=== PATIENT | female | born 1965 | race Caucasian/White ===

== ENCOUNTER → 2020-02-14 | Outpatient (CLI) | payer OTHER ==
--- NOTE | 2020-02-18 14:07 | MM ---
Reason for exam: screening (asymptomatic). Last mammogram was performed 1 year and 2 months ago. History: Patient is postmenopausal. Family history of breast cancer in sister at age 36. Physical Findings: A clinical breast exam by your physician is recommended on an annual basis and results should be correlated with mammographic findings. MG 3D Screening Mammo W/Cad Bilateral CC and MLO view(s) were taken. Prior study comparison: December 06, 2018, mammogram. November 10, 2017, mammogram. There are scattered fibroglandular densities. There are benign appearing round vascular calcifications bilaterally. There is no discrete abnormality. ASSESSMENT: Benign, BI-RAD 2 RECOMMENDATION: Routine screening mammogram of both breasts in 1 year.
== END | disposition home or self-care (01) ==
LOC: RADMAMWWP 10:07
PROVIDERS: ATTEND Obstetrics & Gynecology Obstetrics
DX: Z12.31 Encounter for screening mammogram for malignant neoplasm of breast (principal)
CPT/HCPCS: 77063; 77067

== ENCOUNTER 2021-02-05 10:28 | Emergency (ER) | payer OTHER ==
[2021-02-05 10:33] VITALS: RESP 18
[2021-02-05] MEDS ORDERED: SODIUM CHLORIDE 0.9% 1,000 ML IV STA (10:45)
[2021-02-05 11:18] LABS: Basophils # (A) 0.1 k/uL (0-0.2); Basophils % (A) 1 %; Eosinophils # (A) 0.2 k/uL (0-0.7); Eosinophils % (A) 2 %; HCT 45.4 % (34.0-46.0); HGB 12.8 gm/dL (11.4-16.0); Lymphocytes # (A) 2.2 k/uL (1.0-4.8); Lymphocytes % (A) 25 %; MCH 26.5 pg (25.0-35.0); MCHC 28.3 g/dL (31.0-37.0); MCV 93.5 fL (80.0-100.0); Mean Platelet Volume 7.3; Monocytes # (A) 0.4 k/uL (0-1.0); Monocytes % (A) 4 %; Neutrophils # (A) 5.9 k/uL (1.3-7.7); Neutrophils % (A) 66 %; Platelet Count 278 k/uL (150-450); RBC 4.85 m/uL (3.80-5.40); RDW 13.9 % (11.5-15.5); WBC 8.9 k/uL (3.8-10.6)
[2021-02-05 11:27] LABS: Appearance,Urine Clear (Clear); Bilirubin,Urine Negative (Negative); Blood,Urine Trace (Negative); Color,Urine Yellow; Glucose,Urine (UA) Negative (Negative); Hyaline Casts,Urine 1 /lpf (0-2); Ketones,Urine Negative (Negative); Leukocyte Esterase,Urine Negative (Negative); Mucus,Urine Moderate /hpf; Nitrite,Urine Negative (Negative); PH, Urine 5.5 (5.0-8.0); Protein,Urine Trace (Negative); RBC,Urine 2 /hpf (0-5); Specific Gravity,Urine 1.022 (1.001-1.035); Squamous Epithelial Cell,Urine <1 /hpf (0-4); WBC,Urine 1 /hpf (0-5)
[2021-02-05 11:53] LABS: ALT 26 U/L (4-34); AST 32 U/L (14-36); African American GFR (CKD) >90 (>60 ml/min/1.73 sqM); Albumin 4.5 g/dL (3.5-5.0); Alkaline Phosphatase 118 U/L (38-126); Anion Gap 11 mmol/L; Blood Urea Nitrogen 12 mg/dL (7-17); Calcium 9.6 mg/dL (8.4-10.2); Carbon Dioxide 25 mmol/L (22-30); Chloride 103 mmol/L (98-107); Glucose 102 mg/dL (74-99); Lipase 69 U/L (23-300); Non-African American GFR(CKD) 82 (>60 ml/min/1.73 sqM); Potassium 4.2 mmol/L (3.5-5.1); Sodium 139 mmol/L (137-145); Total Bilirubin 1.1 mg/dL (0.2-1.3); Total Protein 8.1 g/dL (6.3-8.2)
--- NOTE | 2021-02-05 12:33 | CT ---
EXAMINATION TYPE: CT abdomen pelvis w con DATE OF EXAM: 02/05/2021 COMPARISON: None HISTORY: Left lower quadrant pain CT DLP: 1363.5 mGycm Automated exposure control for dose reduction was used. TECHNIQUE: Helical acquisition of images from the lung bases through the pelvis have been completed. CONTRAST: Patient received 100 cc Isovue-300 IV, no oral contrast FINDINGS: LUNG BASES: Minimal dependent atelectatic changes. AORTA: No significant abnormality is appreciated. LIVER/GB: Gallbladder somewhat hydropic. The liver shows low attenuation likely due to hepatic steato sis PANCREAS: No significant abnormality is seen. SPLEEN: No significant abnormality is seen. ADRENALS: No significant abnormality is seen. KIDNEYS: No significant abnormality is seen. REPRODUCTIVE ORGANS: No significant abnormality is seen BOWEL: Diverticular changes are present especially in the sigmoid colon, descending colon, there is bowel wall thickening in the sigmoid colon, some local inflammatory changes are present, some fluid d ensity is present along the sigmoid colon FREE AIR: No Free Air visible. ASCITES: None visible. PELVIC ADENOPATHY: None visualized. RETROPERITONEAL ADENOPATHY: No Retroperitoneal Adenopathy visible. URINARY BLADDER: No significant abnormality is seen. OSSEOUS STRUCTURES: Degenerative disc changes are present in the lumbar spine IMPRESSION: CORRELATE FOR COLITIS, DIVERTICULITIS, FOLLOW-UP IS RECOMMENDED. HYDROPIC GALLBLADDER IS INDETERMINAT E.
[2021-02-05] MEDS ORDERED: cefTRIAXone IN SWFI 1,000 MG/10 ML SYRINGE IVP STA (12:52)
--- NOTE | 2021-02-05 12:53 | ED ---
Abdominal Pain HPI - General Chief Complaint: Abdominal Pain Stated Complaint: Abdominal Pain Time Seen by Provider: 02/05/21 10:29 Source: patient, RN notes reviewed Mode of arrival: ambulatory Limitations: no limitations - History of Present Illness Initial Comments: 55 show female presents emergency Department chief complaint of abdominal pain. Patient states she left lower quadrant abdominal pain last few days. She states it's worse with eating. Patient states she has no diverticuli but no history of diverticulitis. No fevers or chills slight nausea no vomiting no dysuria no hematuria and states about once have been essentially normal. - Related Data Home Medications Medication Instructions Recorded Confirmed Calcium Carbonate [Calcium] 600 mg PO DAILY 02/05/21 02/05/21 Cholecalciferol (Vitamin D3) 75 mcg PO DAILY 02/05/21 02/05/21 [Vitamin D3 (3000 Iu)] Glucos Sul 2Kcl/MSM/Chond/C/Mn 1 cap PO DAILY 02/05/21 02/05/21 [Glucosamine Chondroitin Cap] L.acidoph,Paracasei, B.lactis 1 cap PO DAILY 02/05/21 02/05/21 [Probiotic] Levothyroxine Sodium [Synthroid] 75 mcg PO DAILY 02/05/21 02/05/21 Magnesium 250 mg PO DAILY 02/05/21 02/05/21 Mirabegron [Myrbetriq] 25 mg PO DAILY 02/05/21 02/05/21 Multivitamins, Thera [Multivitamin 1 tab PO DAILY 02/05/21 02/05/21 (formulary)] Turmeric Root Extract [Turmeric] 500 mg PO DAILY 02/05/21 02/05/21 Previous Rx's Medication Instructions Recorded Ciprofloxacin HCl [Cipro] 500 mg PO Q12HR #20 tablet 02/05/21 metroNIDAZOLE [Flagyl] 500 mg PO TID #30 tab 02/05/21 Allergies Allergy/AdvReac Type Severity Reaction Status Date / Time Penicillins Allergy Unknown Verified 02/05/21 12:02 Childhood Review of Systems ROS Statement: Those systems with pertinent positive or pertinent negative responses have been documented in the HPI. ROS Other: All systems not noted in ROS Statement are negative. Past Medical History Past Medical History: Thyroid Disorder History of Any Multi-Drug Resistant Organisms: None Reported Past Surgical History: No Surgical Hx Reported Past Psychological History: No Psychological Hx Reported Smoking Status: Never smoker Past Alcohol Use History: None Reported Past Drug Use History: None Reported General Exam Limitations: no limitations General appearance: alert, in no apparent distress Head exam: Present: atraumatic, normocephalic, normal inspection Eye exam: Present: normal appearance, PERRL, EOMI. Absent: scleral icterus, conjunctival injection, periorbital swelling Respiratory exam: Present: normal lung sounds bilaterally. Absent: respiratory distress, wheezes, rales, rhonchi, stridor Cardiovascular Exam: Present: regular rate, normal rhythm, normal heart sounds. Absent: systolic murmur, diastolic murmur, rubs, gallop, clicks GI/Abdominal exam: Present: soft, tenderness (Mild left lower quadrant), normal bowel sounds. Absent: distended, guarding, rebound, rigid Course Vital Signs 02/05/21 02/05/21 10:29 13:07 Temperature 98.2 F 98.8 F Pulse Rate 56 L 64 Respiratory 18 18 Rate Blood Pressure 169/81 154/92 O2 Sat by Pulse 98 99 Oximetry Medical Decision Making - Medical Decision Making CT shows diverticulitis, colitis. Patient discharged on Cipro and Flagyl's as she has a penicillin ALLERGY. We discussed her liver diet and close follow-up return parameters were discussed. - Lab Data Result diagrams: 02/05/21 10:52 02/05/21 10:52 Lab Results 02/05/21 02/05/21 02/05/21 Range/Units 10:52 10:52 10:52 WBC 8.9 (3.8-10.6) k/uL RBC 4.85 (3.80-5.40) m/uL Hgb 12.8 (11.4-16.0) gm/dL Hct 45.4 (34.0-46.0) % MCV 93.5 (80.0-100.0) fL MCH 26.5 (25.0-35.0) pg MCHC 28.3 L (31.0-37.0) g/dL RDW 13.9 (11.5-15.5) % Plt Count 278 (150-450) k/uL MPV 7.3 Neutrophils % 66 % Lymphocytes % 25 % Monocytes % 4 % Eosinophils % 2 % Basophils % 1 % Neutrophils # 5.9 (1.3-7.7) k/uL Lymphocytes # 2.2 (1.0-4.8) k/uL Monocytes # 0.4 (0-1.0) k/uL Eosinophils # 0.2 (0-0.7) k/uL Basophils # 0.1 (0-0.2) k/uL Sodium 139 (137-145) mmol/L Potassium 4.2 (3.5-5.1) mmol/L Chloride 103 (98-107) mmol/L Carbon Dioxide 25 (22-30) mmol/L Anion Gap 11 mmol/L BUN 12 (7-17) mg/dL Creatinine 0.81 (0.52-1.04) mg/dL Est GFR (CKD-EPI)AfAm >90 (>60 ml/min/1.73 sqM) Est GFR (CKD-EPI)NonAf 82 (>60 ml/min/1.73 sqM) Glucose 102 H (74-99) mg/dL Plasma Lactic Acid Nnamdi (0.7-2.0) mmol/L Calcium 9.6 (8.4-10.2) mg/dL Total Bilirubin 1.1 (0.2-1.3) mg/dL AST 32 (14-36) U/L ALT 26 (4-34) U/L Alkaline Phosphatase 118 (38-126) U/L Total Protein 8.1 (6.3-8.2) g/dL Albumin 4.5 (3.5-5.0) g/dL Lipase 69 (23-300) U/L Urine Color Yellow Urine Appearance Clear (Clear) Urine pH 5.5 (5.0-8.0) Ur Specific Chazy 1.022 (1.001-1.035) Urine Protein Trace H (Negative) Urine Glucose (UA) Negative (Negative) Urine Ketones Negative (Negative) Urine Blood Trace H (Negative) Urine Nitrite Negative (Negative) Urine Bilirubin Negative (Negative) Urine Urobilinogen 2.0 (<2.0) mg/dL Ur Leukocyte Esterase Negative (Negative) Urine RBC 2 (0-5) /hpf Urine WBC 1 (0-5) /hpf Ur Squamous Epith Cells <1 (0-4) /hpf Hyaline Casts 1 (0-2) /lpf Urine Mucus Moderate H (None) /hpf 12// Range/Units 10:52 WBC (3.8-10.6) k/uL RBC (3.80-5.40) m/uL Hgb (11.4-16.0) gm/dL Hct (34.0-46.0) % MCV (80.0-100.0) fL MCH (25.0-35.0) pg MCHC (31.0-37.0) g/dL RDW (11.5-15.5) % Plt Count (150-450) k/uL MPV Neutrophils % % Lymphocytes % % Monocytes % % Eosinophils % % Basophils % % Neutrophils # (1.3-7.7) k/uL Lymphocytes # (1.0-4.8) k/uL Monocytes # (0-1.0) k/uL Eosinophils # (0-0.7) k/uL Basophils # (0-0.2) k/uL Sodium (137-145) mmol/L Potassium (3.5-5.1) mmol/L Chloride (98-107) mmol/L Carbon Dioxide (22-30) mmol/L Anion Gap mmol/L BUN (7-17) mg/dL Creatinine (0.52-1.04) mg/dL Est GFR (CKD-EPI)AfAm (>60 ml/min/1.73 sqM) Est GFR (CKD-EPI)NonAf (>60 ml/min/1.73 sqM) Glucose (74-99) mg/dL Plasma Lactic Acid Nnamdi 1.2 (0.7-2.0) mmol/L Calcium (8.4-10.2) mg/dL Total Bilirubin (0.2-1.3) mg/dL AST (14-36) U/L ALT (4-34) U/L Alkaline Phosphatase (38-126) U/L Total Protein (6.3-8.2) g/dL Albumin (3.5-5.0) g/dL Lipase (23-300) U/L Urine Color Urine Appearance (Clear) Urine pH (5.0-8.0) Ur Specific Chazy (1.001-1.035) Urine Protein (Negative) Urine Glucose (UA) (Negative) Urine Ketones (Negative) Urine Blood (Negative) Urine Nitrite (Negative) Urine Bilirubin (Negative) Urine Urobilinogen (<2.0) mg/dL Ur Leukocyte Esterase (Negative) Urine RBC (0-5) /hpf Urine WBC (0-5) /hpf Ur Squamous Epith Cells (0-4) /hpf Hyaline Casts (0-2) /lpf Urine Mucus (None) /hpf Disposition Clinical Impression: Diverticulitis Disposition: HOME SELF-CARE Condition: Stable Instructions (If sedation given, give patient instructions): Diverticulitis (ED), Diverticulitis Diet (ED) Additional Instructions: Please return to the Emergency Department if symptoms worsen or any other concerns. Prescriptions: Ciprofloxacin HCl [Cipro] 500 mg PO Q12HR #20 tablet metroNIDAZOLE [Flagyl] 500 mg PO TID #30 tab Is patient prescribed a controlled substance at d/c from ED?: No Referrals: José Flores MD [Primary Care Provider] - 1-2 days Time of Disposition: 12:53
[2021-02-05 13:13] VITALS: BP 154/92; PULSE 64; TEMP 98.8
== END 2021-02-05 13:21 | disposition home or self-care (01) ==
LOC: EC 10:28
DX: K57.32 Diverticulitis of large intestine without perforation or abscess without bleeding (principal); Z79.890 Hormone replacement therapy; Z79.899 Other long term (current) drug therapy; Z88.0 Allergy status to penicillin
CPT/HCPCS: 36415; 80053; 83605; 83690; 85025; 81001; 74177; 99284; 96374; 96361 ×2; J0696; Q9967

== ENCOUNTER 2021-02-15 17:50 | Inpatient (IN) | payer OTHER ==
[2021-02-15] MEDS ORDERED: SODIUM CHLORIDE 0.9% 2,000 ML IV STA (17:54)
--- NOTE | 2021-02-15 18:39 | ED ---
General Adult HPI - General Stated complaint: abd pain, nausea Time Seen by Provider: 02/15/21 17:58 Source: patient, RN notes reviewed Mode of arrival: ambulatory Limitations: no limitations - History of Present Illness Initial comments: This is a pleasant 55-year-old female presents emergency Department which the left lower quadrant abdominal pain. Patient was recently diagnosed with diverticulitis did finish a course of antibiotics but states that symptoms are getting worse. She states she's having increasing cramping, pain. Patient states is in the left side of her abdomen. Patient states she's had some slight diarrhea no melena hematochezia. Denies any past chills no dysuria no hematuria. - Related Data Home Medications Medication Instructions Recorded Confirmed Calcium Carbonate [Calcium] 600 mg PO DAILY 02/05/21 02/15/21 Cholecalciferol (Vitamin D3) 75 mcg PO DAILY 02/05/21 02/15/21 [Vitamin D3 (3000 Iu)] Glucos Sul 2Kcl/MSM/Chond/C/Mn 1 cap PO DAILY 02/05/21 02/15/21 [Glucosamine Chondroitin Cap] L.acidoph,Paracasei, B.lactis 1 cap PO DAILY 02/05/21 02/15/21 [Probiotic] Levothyroxine Sodium [Synthroid] 75 mcg PO DAILY 02/05/21 02/15/21 Magnesium 250 mg PO DAILY 02/05/21 02/15/21 Mirabegron [Myrbetriq] 25 mg PO DAILY 02/05/21 02/15/21 Turmeric Root Extract [Turmeric] 500 mg PO DAILY 02/05/21 02/15/21 Ascorbic Acid [Vitamin C] 500 mg PO DAILY 02/15/21 02/15/21 Cinnamon Bark [Cinnamon] 500 mg PO DAILY 02/15/21 02/15/21 Phytonadione [Vitamin K] 5 mg PO DAILY 02/15/21 02/15/21 Allergies Allergy/AdvReac Type Severity Reaction Status Date / Time Penicillins Allergy Unknown Verified 02/15/21 19:16 Childhood Review of Systems ROS Statement: Those systems with pertinent positive or pertinent negative responses have been documented in the HPI. ROS Other: All systems not noted in ROS Statement are negative. Past Medical History Past Medical History: Thyroid Disorder History of Any Multi-Drug Resistant Organisms: None Reported Past Surgical History: No Surgical Hx Reported Past Psychological History: No Psychological Hx Reported Smoking Status: Never smoker Past Alcohol Use History: None Reported Past Drug Use History: None Reported General Exam General appearance: alert, in no apparent distress Head exam: Present: atraumatic, normocephalic, normal inspection Eye exam: Present: normal appearance, PERRL, EOMI. Absent: scleral icterus, conjunctival injection, periorbital swelling ENT exam: Present: normal exam, normal oropharynx, mucous membranes moist Neck exam: Present: normal inspection, full ROM. Absent: tenderness, menin gismus, lymphadenopathy Respiratory exam: Present: normal lung sounds bilaterally. Absent: respiratory distress, wheezes, rales, rhonchi, stridor Cardiovascular Exam: Present: regular rate, normal rhythm, normal heart sounds. Absent: systolic murmur, diastolic murmur, rubs, gallop, clicks GI/Abdominal exam: Present: soft, tenderness, normal bowel sounds. Absent: distended, guarding, rebound, rigid Back exam: Absent: CVA tenderness (R), CVA tenderness (L) Neurological exam: Present: alert Skin exam: Present: warm, dry, intact, normal color. Absent: rash Course Vital Signs 02/15/21 18:36 Temperature 99 F Pulse Rate 90 Respiratory 18 Rate Blood Pressure 151/85 O2 Sat by Pulse 97 Oximetry Medical Decision Making - Medical Decision Making Patient CT worsened compared to prior. Patient continues to have pain. I did discuss case with Dr. Bran accepts admission with surgery consult. - Lab Data Result diagrams: 02/15/21 18:45 02/15/21 18:45 Lab Results 02/15/21 02/15/21 02/15/21 Range/Units 18:45 18:45 18:45 WBC 10.8 H (3.8-10.6) k/uL RBC 4.71 (3.80-5.40) m/uL Hgb 14.2 (11.4-16.0) gm/dL Hct 43.9 (34.0-46.0) % MCV 93.3 (80.0-100.0) fL MCH 30.2 (25.0-35.0) pg MCHC 32.4 (31.0-37.0) g/dL RDW 14.2 (11.5-15.5) % Plt Count 304 (150-450) k/uL MPV 7.4 Neutrophils % 78 % Lymphocytes % 15 % Monocytes % 4 % Eosinophils % 1 % Basophils % 0 % Neutrophils # 8.4 H (1.3-7.7) k/uL Lymphocytes # 1.6 (1.0-4.8) k/uL Monocytes # 0.4 (0-1.0) k/uL Eosinophils # 0.1 (0-0.7) k/uL Basophils # 0.0 (0-0.2) k/uL Sodium 137 (137-145) mmol/L Potassium 3.7 (3.5-5.1) mmol/L Chloride 102 (98-107) mmol/L Carbon Dioxide 22 (22-30) mmol/L Anion Gap 13 mmol/L BUN 11 (7-17) mg/dL Creatinine 0.73 (0.52-1.04) mg/dL Est GFR (CKD-EPI)AfAm >90 (>60 ml/min/1.73 sqM) Est GFR (CKD-EPI)NonAf >90 (>60 ml/min/1.73 sqM) Glucose 109 H (74-99) mg/dL Plasma Lactic Acid Nnamdi 0.9 (0.7-2.0) mmol/L Calcium 9.4 (8.4-10.2) mg/dL Total Bilirubin 1.2 (0.2-1.3) mg/dL AST 27 (14-36) U/L ALT 25 (4-34) U/L Alkaline Phosphatase 96 (38-126) U/L Total Protein 7.6 (6.3-8.2) g/dL Albumin 4.2 (3.5-5.0) g/dL Amylase 37 (30-110) U/L Lipase 50 (23-300) U/L Disposition Clinical Impression: Diverticulitis, Failure of outpatient treatment Disposition: ADMITTED IP TO THIS [facility] Condition: Fair Referrals: José Flores MD [Primary Care Provider] - 1-2 days
[2021-02-15] MEDS ORDERED: ONDANSETRON 4 MG/2 ML VIAL IVP STA (18:58)
[2021-02-15] MEDS ORDERED: KETOROLAC 15 MG/ML 1 ML VIAL IVP STA (18:58)
[2021-02-15 19:02] LABS: Basophils % (A) 0 %; Eosinophils # (A) 0.1 k/uL (0-0.7); Eosinophils % (A) 1 %; HCT 43.9 % (34.0-46.0); HGB 14.2 gm/dL (11.4-16.0); Lymphocytes # (A) 1.6 k/uL (1.0-4.8); Lymphocytes % (A) 15 %; MCH 30.2 pg (25.0-35.0); MCHC 32.4 g/dL (31.0-37.0); MCV 93.3 fL (80.0-100.0); Mean Platelet Volume 7.4; Monocytes # (A) 0.4 k/uL (0-1.0); Monocytes % (A) 4 %; Neutrophils # (A) 8.4 k/uL (1.3-7.7); Neutrophils % (A) 78 %; Platelet Count 304 k/uL (150-450); RBC 4.71 m/uL (3.80-5.40); RDW 14.2 % (11.5-15.5); WBC 10.8 k/uL (3.8-10.6)
[2021-02-15 19:11] LABS: ALT 25 U/L (4-34); AST 27 U/L (14-36); African American GFR (CKD) >90 (>60 ml/min/1.73 sqM); Albumin 4.2 g/dL (3.5-5.0); Alkaline Phosphatase 96 U/L (38-126); Amylase 37 U/L (30-110); Anion Gap 13 mmol/L; Blood Urea Nitrogen 11 mg/dL (7-17); Calcium 9.4 mg/dL (8.4-10.2); Carbon Dioxide 22 mmol/L (22-30); Chloride 102 mmol/L (98-107); Glucose 109 mg/dL (74-99); Lipase 50 U/L (23-300); Non-African American GFR(CKD) >90 (>60 ml/min/1.73 sqM); Potassium 3.7 mmol/L (3.5-5.1); Sodium 137 mmol/L (137-145); Total Bilirubin 1.2 mg/dL (0.2-1.3); Total Protein 7.6 g/dL (6.3-8.2)
--- NOTE | 2021-02-15 19:23 | CT ---
EXAMINATION TYPE: CT abdomen pelvis w con DATE OF EXAM: 02/15/2021 COMPARISON: None HISTORY: Abdominal pain and nausea. Recently treated for diverticulitis. CT DLP: 1248.6 mGycm Automated exposure control for dose reduction was used. CONTRAST: Performed with IV Contrast, patient injected with 100 mL of Isovue 300. Images obtained from the diaphragm to the floor the pelvis with IV contrast. The lung bases are clear . There is no pleural effusion. Heart size is normal. There is no pericardial effusion. Liver spleen pancreas stomach appear intact. The bile duct are not dilated. There is moderately dilated gallbladde r measuring 6 cm. There is no adrenal mass. Kidneys show satisfactory contrast opacification. There is no hydronephrosi s. Common bile duct is not dilated. There is no retroperitoneal adenopathy. Bladder distends smoothly. There is wall thickening and fat stranding around the long segment of sigmoid colon. There is small a mount of fluid around the colon. There are sigmoid diverticula. Appendix appears normal. There is no free air. There is no evidence of a bowel obstruction. Lumbar vertebrae have fairly normal alignment. There is no compression fracture. There is slight thor acolumbar dextroscoliosis. Bony pelvis is intact. Hip joints are intact. IMPRESSION: Wall thickening and fat stranding along a long segment of sigmoid colon that is consistent with diver ticulitis or colitis. The segment measures 13 cm in length. Dilated gallbladder suggestive of cholecystitis.
[2021-02-15] MEDS ORDERED: KETOROLAC 15 MG/ML 1 ML VIAL IVP PRN (19:45)
[2021-02-15] MEDS ORDERED: HYDROmorphone 0.5 MG/0.5 ML SYRINGE IVP PRN (19:45)
[2021-02-15] MEDS ORDERED: ACETAMINOPHEN TAB 325 MG TAB PO PRN (19:45)
[2021-02-15] MEDS ORDERED: NALOXONE 0.4 MG/ML 1 ML VIAL IV PRN (19:45)
[2021-02-15] MEDS ORDERED: ONDANSETRON 4 MG/2 ML VIAL IVP PRN (19:45)
[2021-02-15] MEDS ORDERED: CEFEPIME 2 GM in SODIUM CHLORIDE 0.9% 100 ML IVPB STA (19:58)
[2021-02-15] MEDS ORDERED: metroNIDAZOLE-NS PMX 500 MG in SALINE 1 100ML.BAG IVPB STA (20:00)
[2021-02-15] MEDS: SODIUM CHLORIDE 0.9% 1,000 ML IV SCH (22:11)
--- NOTE | 2021-02-16 00:24 | P.HPIM ---
History of Present Illness H&P Date: 02/15/21 Chief Complaint: abd pain 55 year old female with hypothyroid patient was diagnosed with diverticulitis about 10 days ago and was discharged on flagyl and cipro PO at that time. she reports some initial improvement in her symptoms but once she started regular diet again , she noticed severe pain in her lower abd with feeling nauseous that kept getting worse throughout the day , pain worsens with movement . difficulty passing bowel movement which she describes her stool as pencil like. she denies any fever, chills, vomiting, diarrhea, or GI bleeding. pain is cramping in nature over lower abd 7/10 in severity but was getting worse. denies any GI bleeding , hematuria , or vomiting. she just finished her PO antibiotics today upon arrival , CT of the abd , showed wall thickening and increase fatty stranding around the sigmoid colon , elevated WBC and stable hgb. lactic acid was unremarkable Review of Systems Pertinent positives as noted in HPI. All other systems were reviewed and are negative Past Medical History Past Medical History: Thyroid Disorder History of Any Multi-Drug Resistant Organisms: None Reported Past Surgical History: No Surgical Hx Reported Past Psychological History: No Psychological Hx Reported Smoking Status: Never smoker Past Alcohol Use History: None Reported Past Drug Use History: None Reported - Past Family History family Family Medical History: No Reported History Medications and Allergies Home Medications Medication Instructions Recorded Confirmed Type Calcium Carbonate [Calcium] 600 mg PO DAILY 02/05/21 02/15/21 History Cholecalciferol (Vitamin D3) 75 mcg PO DAILY 02/05/21 02/15/21 History [Vitamin D3 (3000 Iu)] Glucos Sul 2Kcl/MSM/Chond/C/Mn 1 cap PO DAILY 02/05/21 02/15/21 History [Glucosamine Chondroitin Cap] L.acidoph,Paracasei, B.lactis 1 cap PO DAILY 02/05/21 02/15/21 History [Probiotic] Levothyroxine Sodium [Synthroid] 75 mcg PO DAILY 02/05/21 02/15/21 History Magnesium 250 mg PO DAILY 02/05/21 02/15/21 History Mirabegron [Myrbetriq] 25 mg PO DAILY 02/05/21 02/15/21 History Turmeric Root Extract [Turmeric] 500 mg PO DAILY 02/05/21 02/15/21 History Ascorbic Acid [Vitamin C] 500 mg PO DAILY 02/15/21 02/15/21 History Cinnamon Bark [Cinnamon] 500 mg PO DAILY 02/15/21 02/15/21 History Phytonadione [Vitamin K] 5 mg PO DAILY 02/15/21 02/15/21 History Allergies Allergy/AdvReac Type Severity Reaction Status Date / Time Penicillins Allergy Unknown Verified 02/15/21 19:16 Childhood Physical Exam Vitals: Vital Signs Temp Pulse Resp BP Pulse Ox 02/15/21 18:36 99 F 90 18 151/85 97 Intake and Output 02/15/21 02/15/21 02/15/21 06:59 14:59 22:59 Other: Weight 95.254 kg Constitutional: No acute distress, conversant, pleasant Eyes: Anicteric sclerae, moist conjunctiva, Pupils equal round reactive to light ENMT: NC/AT Oropharynx clear, no erythema, or exudates Neck: Supple, no masses, or JVD No carotid bruits No thyromegaly Lungs: Clear to auscultation Clear to percussion Normal respiratory effort, no accessory muscle use Cardiovascular: Heart regular in rate and rhythm, No murmurs, gallops, or rubs No peripheral edema Abdominal: Soft tenderness over left lower quadrant and suprapubic region , no guarding, rebound or rigidity Abdomen moving with respiration Normoactive bowel sounds No hepatomegaly, No splenomegaly No palpable mass No abdominal wall hernia noted Skin: Normal temperature, tone, texture, turgor No induration No subcutaneous nodules No rash, lesions No ulcers Extremities: No digital cyanosis No clubbing Pedal pulses intact and symmetrical Radial pulses intact and symmetrical No calf tenderness Psychiatric: Alert and oriented to person, place and time Appropriate affect fair judgement Neuro Muscles Strength 5/5 in all 4 extremities Sensation to light touch grossly present throughout Cranial nerves II-XII grossly intact No focal sensory deficits Lymphatics: no palpable cervical or supraclavicular , or inguinal lymph nodes Results CBC & Chem 7: 02/15/21 18:45 02/15/21 18:45 Labs: Abnormal Lab Results - Last 24 Hours (Table) 02/15/21 02/15/21 Range/Units 18:45 18:45 WBC 10.8 H (3.8-10.6) k/uL Neutrophils # 8.4 H (1.3-7.7) k/uL Glucose 109 H (74-99) mg/dL Assessment and Plan Assessment: acute diverticulitis , failed OP therapy persistent and worsening abd pain follow up cultures and UA empiric antibiotics with cefepime and flagyl IVF hydration with normal saline clear liquid diet pain control with opioids gen surg consult zofran for nausea hypothyroid resume home meds DVT PPX heparin sc tid full code anticipated length of stay > 2 midnights
[2021-02-16] MEDS: NON FORMULARY DRUG (Mirabegron [Myrbetriq] 25 MG Tablet) PO SCH (08:03)
[2021-02-16] MEDS: CEFEPIME 2 GM in SODIUM CHLORIDE 0.9% 100 ML IVPB SCH ×3 (08:11→23:02)
[2021-02-16] MEDS: LEVOTHYROXINE 75 MCG TAB PO SCH (08:11)
[2021-02-16] MEDS: HEPARIN SODIUM,PORCINE/PF 5,000 UNIT/0.5 ML SYRINGE SQ SCH ×3 (08:11→23:24)
[2021-02-16] MEDS ORDERED: metroNIDAZOLE-NS PMX 500 MG in SALINE 1 100ML.BAG IVPB SCH (09:00)
[2021-02-16] MEDS: SODIUM CHLORIDE 0.9% 1,000 ML IV SCH ×2 (10:33→23:29)
--- NOTE | 2021-02-16 11:42 | P.PN ---
<Clarence Sumner - Last Filed: 02/16/21 15:13> Subjective Progress Note Date: 02/16/21 Hospital course: Patient is a very pleasant 55-year-old female with a past medical history of hypothyroidism. She presented to the emergency department on 02/15/21 with a chief complaint of left lower quadrant abdominal pain. Patient reports recent diagnosis of diverticulitis on 02/05/21 where she was seen and evaluated in the emergency department resulting in diagnosis of diverticulitis and discharged home on Flagyl and ciprofloxacin. Patient reports completing entire course of antibiotics on 02/15/21 but states she began having recurrent abdominal bloating and pain on the evening of 02/12/21 and progressively worsening. Patient was seen and fully evaluated in the emergency department. She was found to have She underwent a CT abdomen and pelvis without contrast which revealed wall thickening and fat stranding along a long segment of sigmoid colon that is consistent with diverticulitis or colitis with dilated gallbladder suggestive of cholecystitis . Patient admitted under our services with consultation to general surgery. Physical exam: Vital signs reviewed and stable. General: Nontoxic, no distress and appears stated age. Derm: Skin warm and dry, normal coloration for ethnicity. Head: Atraumatic, normocephalic and symmetric. Eyes: EOMs intact, no lid lag, and anicteric sclera Mouth: no lip lesions, mucus membranes moist Cardiovascular: regular rate and rhythm with normal S1S2, no murmur, positive posterior tibial pulses bilaterally, and cap refill < 2 seconds. Lungs: Respirations even, regular, and unlabored on room air. Lungs CTA bilaterally, no rhonchi, no rales, no wheezing, and no accessory muscle usage. Abdominal: soft, mild epigastric tenderness upon palpation as well as tenderness to left lower quadrant, no guarding, no appreciable organomegaly Ext: ROM intact. No gross muscle atrophy, no edema, no contractures Neuro: Speech clear, face symmetrical and CN II-XII grossly intact with no noted focal neuro deficits Psych: Alert and oriented to person, place, time, and situation. Appropriate and pleasant affect. Assessment and Plan of Care: Acute diverticulitis of sigmoid colon, failed outpatient treatment with Flagyl and ciprofloxacin [address] abdomen and pelvis without contrast which revealed wall thickening and fat stranding along a long segment of sigmoid colon that is consistent with diverticulitis or colitis with dilated gallbladder suggestive of cholecystitis GI consulted Gen. surgery consulted Continue IV antibiotics with cefepime and Flagyl Clear liquid diet Continue gentle hydration with 0.9% normal saline in 100 mL's per hour. Blood cultures. Symptomatic care and pain management. CT findings suggest dilated gallbladder concerning for cholecystitis Gen. surgery consulted Negative Gaines's sign Hypothyroidism Continue daily medication regimen with levothyroxine 75 g each morning. CODE STATUS: Full code DVT prophylaxis: Heparin Discussed with: Patient and RN Anticipated discharge date: clinical course to determine Anticipated discharge place: Home A total of 45 minutes was spent on the care of this complex patient more than 50% of the time was spent in counseling and care coordination. Objective - Vital Signs Vital signs: Vital Signs Temp 98.7 F 02/16/21 06:00 Pulse 64 02/16/21 06:00 Resp 02/16/21 06:00 BP 149/81 02/16/21 06:00 Pulse Ox 92 L 02/16/21 06:00 Intake & Output 02/15/21 02/16/21 02/16/21 18:59 06:59 18:59 Weight 95.254 kg - Labs CBC & Chem 7: 02/15/21 18:45 02/15/21 18:45 Labs: Abnormal Lab Results - Last 24 Hours (Table) 02/15/21 02/15/21 Range/Units 18:45 18:45 WBC 10.8 H (3.8-10.6) k/uL Neutrophils # 8.4 H (1.3-7.7) k/uL Glucose 109 H (74-99) mg/dL <Yash Maurer - Last Filed: 02/16/21 15:32> Objective - Vital Signs Vital signs: Vital Signs Temp 98.7 F 02/16/21 06:00 Pulse 64 02/16/21 06:00 Resp 02/16/21 06:00 BP 149/81 02/16/21 06:00 Pulse Ox 92 L 02/16/21 06:00 Intake & Output 02/15/21 02/16/21 02/16/21 18:59 06:59 18:59 Weight 95.254 kg 95.254 kg - Labs CBC & Chem 7: 02/15/21 18:45 02/15/21 18:45 Labs: Abnormal Lab Results - Last 24 Hours (Table) 02/15/21 02/15/21 Range/Units 18:45 18:45 WBC 10.8 H (3.8-10.6) k/uL Neutrophils # 8.4 H (1.3-7.7) k/uL Glucose 109 H (74-99) mg/dL Assessment and Plan Assessment: Patient was seen by Clarence Sumner NP and case was discussed. I am in agreement with assessment and plan as written above.
--- NOTE | 2021-02-16 13:25 | P.GSCN ---
History of Present Illness Consult date: 02/16/21 Reason for Consult: Sigmoid diverticulitis History of present illness: 55-year-old female known to our service. 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 Patient came to the hospital on 1223 with left lower quadrant pain and had a CAT scan demonstrating thickening of the sigmoid colon most consistent with acute diverticulitis. She was sent home on a 10 day course of Cipro and Flagyl. She finished her antibiotics yesterday. Unfortunately her symptoms over the weekend became more severe once again with bloating, left lower quadrant cramping, decreased bowel function with narrower stools and decreased flatus. Patient had some nausea but no vomiting. Appetite is been significantly diminished. Repeat CAT scan performed still showing evidence of inflammation involving the sigmoid colon area there may be a small intramural abscess but no sizable or drainable collections noted. Patient says her last colonoscopy was 3-4 years ago and showed only mild diverticulosis. Since her symptoms of diverticulitis in retrospect probably started around giving with some mild left lower quadrant discomforts. Patient's white blood cell count normal today. She is afebrile. Patient denies any upper a bdominal discomfort. Since admission yesterday she has been passing flatus and had a small bowel movement. Denies rectal bleeding. Review of Systems The patient denies any acute changes in vision or hearing, no dysphagia or odynophagia, no chest pain or shortness of breath, no dysuria or hematuria, no headache, no runny nose, no rectal bleeding or melena, no unexplained weight loss Past Medical History Past Medical History: Asthma, Osteoarthritis (OA), Thyroid Disorder Additional Past Medical History / Comment(s): Recently diagnosed with diverticulitis and was treated with antibiotics, past colonoscopy with diverticulum, hypothyroid, UTIs, overactive bladder, osteopenia, arthritis bilateral ankles/feet History of Any Multi-Drug Resistant Organisms: None Reported Past Surgical History: No Surgical Hx Reported Additional Past Surgical History / Comment(s): 2017 colonoscopy Past Anesthesia/Blood Transfusion Reactions: No Reported Reaction Smoking Status: Never smoker - Past Family History Mother Family Medical History: COPD, Diabetes Mellitus Additional Family Medical History / Comment(s): Mother is , she was a smoker. Father Family Medical History: Cancer Additional Family Medical History / Comment(s): Father of lung cancer. family Family Medical History: No Reported History Medications and Allergies Home Medications Medication Instructions Recorded Confirmed Type Calcium Carbonate [Calcium] 600 mg PO DAILY 02/05/21 02/15/21 History Cholecalciferol (Vitamin D3) 75 mcg PO DAILY 02/05/21 02/15/21 History [Vitamin D3 (3000 Iu)] Glucos Sul 2Kcl/MSM/Chond/C/Mn 1 cap PO DAILY 02/05/21 02/15/21 History [Glucosamine Chondroitin Cap] L.acidoph,Paracasei, B.lactis 1 cap PO DAILY 02/05/21 02/15/21 History [Probiotic] Levothyroxine Sodium [Synthroid] 75 mcg PO DAILY 02/05/21 02/15/21 History Magnesium 250 mg PO DAILY 02/05/21 02/15/21 History Mirabegron [Myrbetriq] 25 mg PO DAILY 02/05/21 02/15/21 History Turmeric Root Extract [Turmeric] 500 mg PO DAILY 02/05/21 02/15/21 History Ascorbic Acid [Vitamin C] 500 mg PO DAILY 02/15/21 02/15/21 History Cinnamon Bark [Cinnamon] 500 mg PO DAILY 02/15/21 02/15/21 History Phytonadione [Vitamin K] 5 mg PO DAILY 02/15/21 02/15/21 History Allergies Allergy/AdvReac Type Severity Reaction Status Date / Time Penicillins Allergy Unknown Verified 02/15/21 19:16 Childhood Surgical - Exam Vital Signs Temp Pulse Resp BP Pulse Ox 99 F 90 18 151/85 97 02/15/21 18:36 02/15/21 18:36 02/15/21 18:36 02/15/21 18:36 02/15/21 18:36 Physical exam: General: Well-developed, well-nourished HEENT: Normocephalic, sclerae nonicteric Abdomen: Mild distention, mild left lower quadrant tenderness, no rebound or guarding Extremities: No edema Neuro: Alert and oriented Results - Labs 02/15/21 18:45 02/15/21 18:45 Abnormal Lab Results - Last 24 Hours (Table) 02/15/21 02/15/21 Range/Units 18:45 18:45 WBC 10.8 H (3.8-10.6) k/uL Neutrophils # 8.4 H (1.3-7.7) k/uL Glucose 109 H (74-99) mg/dL Diabetes panel 02/15/21 Range/Units 18:45 Sodium 137 (137-145) mmol/L Potassium 3.7 (3.5-5.1) mmol/L Chloride 102 (98-107) mmol/L Carbon Dioxide 22 (22-30) mmol/L BUN 11 (7-17) mg/dL Creatinine 0.73 (0.52-1.04) mg/dL Glucose 109 H (74-99) mg/dL Calcium 9.4 (8.4-10.2) mg/dL AST 27 (14-36) U/L ALT 25 (4-34) U/L Alkaline Phosphatase 96 (38-126) U/L Total Protein 7.6 (6.3-8.2) g/dL Albumin 4.2 (3.5-5.0) g/dL Calcium panel 02/15/21 Range/Units 18:45 Calcium 9.4 (8.4-10.2) mg/dL Albumin 4.2 (3.5-5.0) g/dL Pituitary panel 02/15/21 Range/Units 18:45 Sodium 137 (137-145) mmol/L Potassium 3.7 (3.5-5.1) mmol/L Chloride 102 (98-107) mmol/L Carbon Dioxide 22 (22-30) mmol/L BUN 11 (7-17) mg/dL Creatinine 0.73 (0.52-1.04) mg/dL Glucose 109 H (74-99) mg/dL Calcium 9.4 (8.4-10.2) mg/dL Adrenal panel 02/15/21 Range/Units 18:45 Sodium 137 (137-145) mmol/L Potassium 3.7 (3.5-5.1) mmol/L Chloride 102 (98-107) mmol/L Carbon Dioxide 22 (22-30) mmol/L BUN 11 (7-17) mg/dL Creatinine 0.73 (0.52-1.04) mg/dL Glucose 109 H (74-99) mg/dL Calcium 9.4 (8.4-10.2) mg/dL Total Bilirubin 1.2 (0.2-1.3) mg/dL AST 27 (14-36) U/L ALT 25 (4-34) U/L Alkaline Phosphatase 96 (38-126) U/L Total Protein 7.6 (6.3-8.2) g/dL Albumin 4.2 (3.5-5.0) g/dL Assessment and Plan (1) Diverticulitis Narrative/Plan: 55-year-old female with inflammatory changes of the sigmoid colon most consistent with acute diverticulitis. Continue broad-spectrum antibiotics. Consider infectious disease consultation given the patient's failure of traditional Cipro Flagyl regimen. No need for gallbladder workup as the gallbladder distention is likely on the basis of decreased bowel motility and decreased oral intake. Continue clear liquid diet for now. We'll follow closely with you. Current Visit: Yes Status: Acute Code(s): K57.92 - DVTRCLI OF INTEST, PART UNSP, W/O PERF OR ABSCESS W/O BLEED SNOMED Code(s): 402368592
[2021-02-16] MEDS: metroNIDAZOLE-NS PMX 500 MG in SALINE 1 100ML.BAG IVPB SCH (21:18)
[2021-02-16 22:46] LABS: Appearance,Urine Clear (Clear); Bilirubin,Urine Negative (Negative); Blood,Urine Negative (Negative); Color,Urine Light Yellow; Glucose,Urine (UA) Negative (Negative); Ketones,Urine 1+ (Negative); Leukocyte Esterase,Urine Negative (Negative); Nitrite,Urine Negative (Negative); Protein,Urine Negative (Negative); Specific Gravity,Urine 1.009 (1.001-1.035); Urobilinogen,Urine <2.0 mg/dL (<2.0)
[2021-02-16] MEDS ORDERED: KETOROLAC 30 MG/ML 1 ML VIAL IVP PRN (23:12)
[2021-02-17] MEDS: metroNIDAZOLE-NS PMX 500 MG in SALINE 1 100ML.BAG IVPB SCH ×3 (04:13→21:22)
[2021-02-17] MEDS: CEFEPIME 2 GM in SODIUM CHLORIDE 0.9% 100 ML IVPB SCH ×3 (06:07→22:42)
[2021-02-17] MEDS: LEVOTHYROXINE 75 MCG TAB PO SCH (06:07)
[2021-02-17 08:29] LABS: HCT 39.5 % (34.0-46.0); HGB 12.8 gm/dL (11.4-16.0); MCH 30.4 pg (25.0-35.0); MCHC 32.4 g/dL (31.0-37.0); Mean Platelet Volume 7.5; Platelet Count 279 k/uL (150-450); RDW 13.6 % (11.5-15.5); WBC 7.2 k/uL (3.8-10.6)
[2021-02-17] MEDS: SODIUM CHLORIDE 0.9% 1,000 ML IV SCH ×2 (08:39→21:23)
[2021-02-17] MEDS: HEPARIN SODIUM,PORCINE/PF 5,000 UNIT/0.5 ML SYRINGE SQ SCH ×2 (08:39→17:11)
[2021-02-17 08:48] LABS: ALT 18 U/L (4-34); AST 21 U/L (14-36); African American GFR (CKD) >90 (>60 ml/min/1.73 sqM); Albumin 3.3 g/dL (3.5-5.0); Alkaline Phosphatase 82 U/L (38-126); Anion Gap 8 mmol/L; Blood Urea Nitrogen 8 mg/dL (7-17); Calcium 8.6 mg/dL (8.4-10.2); Carbon Dioxide 24 mmol/L (22-30); Chloride 107 mmol/L (98-107); Glucose 87 mg/dL (74-99); Non-African American GFR(CKD) >90 (>60 ml/min/1.73 sqM); Potassium 3.7 mmol/L (3.5-5.1); Sodium 139 mmol/L (137-145); Total Bilirubin 0.9 mg/dL (0.2-1.3); Total Protein 6.4 g/dL (6.3-8.2)
[2021-02-17] MEDS: NON FORMULARY DRUG (Mirabegron [Myrbetriq] 25 MG Tablet) PO SCH (08:56)
--- NOTE | 2021-02-17 14:07 | P.PN ---
<Clarence Sumner - Last Filed: 02/17/21 13:45> Subjective Progress Note Date: 02/17/21 Hospital course: Patient is a very pleasant 55-year-old female with a past medical history of hypothyroidism. She presented to the emergency department on 02/15/21 with a chief complaint of left lower quadrant abdominal pain. Patient reports recent diagnosis of diverticulitis on 02/05/21 where she was seen and evaluated in the emergency department resulting in diagnosis of diverticulitis and discharged home on Flagyl and ciprofloxacin. Patient reports completing entire course of antibiotics on 02/15/21 but states she began having recurrent abdominal bloating and pain on the evening of 02/12/21 and progressively worsening. Patient was seen and fully evaluated in the emergency department. She was found to have She underwent a CT abdomen and pelvis without contrast which revealed wall thickening and fat stranding along a long segment of sigmoid colon that is consistent with diverticulitis or colitis with dilated gallbladder suggestive of cholecystitis . Urinalysis negative for infection. Covid PCR negative. Patient admitted under our services with consultation to general surgery. Physical exam: Patient seen and fully evaluated at bedside this morning. She reports continued left upper and left lower quadrant pain upon palpation accompanied by mild distention of the abdomen. She denies any further episodes of nausea and denies any vomiting or diarrhea. Patient has remained afebrile since hospitalization. Blood Cultures showing no growth after 24 hours. Morning labs reviewed and were unremarkable. Urinalysis negative for infection. Patient was evaluated by general surgery including no need for further gallbladder workup as gallbladder distention is likely on the basis of decreased bowel motility and decreased oral intake. General surgery recommending continuation of clear liquid diet only at this time. Patient continues to have pain left upper and left lower quadrant with palpation. She denies any episodes of nausea or vomiting. She remains on IV antibiotics of cefepime and Flagyl. Vital signs reviewed and stable. General: Nontoxic, no distress and appears stated age. Derm: Skin warm and dry, normal coloration for ethnicity. Head: Atraumatic, normocephalic and symmetric. Eyes: EOMs intact, no lid lag, and anicteric sclera Mouth: no lip lesions, mucus membranes moist Cardiovascular: regular rate and rhythm with normal S1S2, no murmur, positive posterior tibial pulses bilaterally, and cap refill < 2 seconds. Lungs: Respirations even, regular, and unlabored on room air. Lungs CTA bilaterally, no rhonchi, no rales, no wheezing, and no accessory muscle usage. Abdominal: soft, tenderness upon palpation to left upper and left lower quadrant, no guarding, no appreciable organomegaly Ext: ROM intact. No gross muscle atrophy, no edema, no contractures Neuro: Speech clear, face symmetrical and CN II-XII grossly intact with no noted focal neuro deficits Psych: Alert and oriented to person, place, time, and situation. Appropriate and pleasant affect. Assessment and Plan of Care: Acute diverticulitis of sigmoid colon, failed outpatient treatment with Flagyl and ciprofloxacin [address] abdomen and pelvis without contrast which revealed wall thickening and fat stranding along a long segment of sigmoid colon that is consistent with diverticulitis or colitis with dilated gallbladder suggestive of cholecystitis Gen. surgery following Continue IV antibiotics with cefepime and Flagyl Continue Clear liquid diet Continue gentle hydration with 0.9% normal saline at 100 mL's per hour. Blood cultures showing no growth after 24 hours Symptomatic care and pain management. CT findings suggest dilated gallbladder concerning for cholecystitis Gen. surgery consulted, stating no need for gallbladder workup as gallbladder distention is likely on the basis of decreased bowel motility and decreased oral intake. Negative Gaines's sign Hypothyroidism Continue daily medication regimen with levothyroxine 75 g each morning. CODE STATUS: Full code DVT prophylaxis: Heparin Discussed with: Patient and RN Anticipated discharge date: clinical course to determine Anticipated discharge place: Home A total of 45 minutes was spent on the care of this complex patient more than 50% of the time was spent in counseling and care coordination. Objective - Vital Signs Vital signs: Vital Signs Temp 99.1 F 02/17/21 08:00 Pulse 68 02/17/21 08:00 Resp 18 02/17/21 08:00 BP 134/76 02/17/21 08:00 Pulse Ox 97 02/17/21 08:00 Intake & Output 02/16/21 02/17/21 02/17/21 18:59 06:59 18:59 Weight 95.254 kg Other: # Voids 3 - Labs CBC & Chem 7: 02/17/21 08:03 02/17/21 08:03 Labs: Abnormal Lab Results - Last 24 Hours (Table) 02/16/21 02/17/21 Range/Units 22:43 08:03 Albumin 3.3 L (3.5-5.0) g/dL Urine Ketones 1+ H (Negative) Microbiology - Last 24 Hours (Table) 02/15/21 21:27 Blood Culture - Preliminary Blood No Growth after 24 hours 02/15/21 21:20 Blood Culture - Preliminary Blood No Growth after 24 hours <Evan Gutierres - Last Filed: 02/17/21 14:47> Subjective I reviewed the documentation as provided by the FRANCIS above, who is the original author of this note. I agree with the documented assessment and plan, with the following changes: None Objective - Vital Signs Vital signs: Vital Signs Temp 99.1 F 02/17/21 08:00 Pulse 68 02/17/21 08:00 Resp 18 02/17/21 08:00 BP 134/76 02/17/21 08:00 Pulse Ox 97 02/17/21 08:00 Intake & Output 02/16/21 02/17/21 02/17/21 18:59 06:59 18:59 Weight 95.254 kg Other: # Voids 3 - Labs CBC & Chem 7: 02/17/21 08:03 02/17/21 08:03 Labs: Abnormal Lab Results - Last 24 Hours (Table) 02/16/21 02/17/21 Range/Units 22:43 08:03 Albumin 3.3 L (3.5-5.0) g/dL Urine Ketones 1+ H (Negative) Microbiology - Last 24 Hours (Table) 02/15/21 21:27 Blood Culture - Preliminary Blood No Growth after 24 hours 02/15/21 21:20 Blood Culture - Preliminary Blood No Growth after 24 hours
--- NOTE | 2021-02-17 14:11 | P.PN ---
Subjective Progress Note Date: 02/17/21 Principal diagnosis: Diverticulitis Patient doing somewhat better today. T-max 99.1. White blood cell count normal. She is passing flatus and had another small bowel movement. Feels less bloated today. Not eating much because the clear liquids are 2 suite. Objective - Vital Signs Vital signs: Vital Signs Temp 99.1 F 02/17/21 08:00 Pulse 68 02/17/21 08:00 Resp 18 02/17/21 08:00 BP 134/76 02/17/21 08:00 Pulse Ox 97 02/17/21 08:00 Intake & Output 02/16/21 02/17/21 02/17/21 18:59 06:59 18:59 Weight 95.254 kg Other: # Voids 3 - Exam Abdomen: Soft, nondistended, mild left lower quadrant tenderness - Labs CBC & Chem 7: 02/17/21 08:03 02/17/21 08:03 Labs: Abnormal Lab Results - Last 24 Hours (Table) 02/16/21 02/17/21 Range/Units 22:43 08:03 Albumin 3.3 L (3.5-5.0) g/dL Urine Ketones 1+ H (Negative) Microbiology - Last 24 Hours (Table) 02/15/21 21:27 Blood Culture - Preliminary Blood No Growth after 24 hours 02/15/21 21:20 Blood Culture - Preliminary Blood No Growth after 24 hours Assessment and Plan (1) Diverticulitis Narrative/Plan: Overall patient seems to be improving. Continue antibiotics. Discussed infectious disease evaluation with primary service. Increase diet to full liquids. Add stool softeners. We'll follow with you. Current Visit: Yes Status: Acute Code(s): K57.92 - DVTRCLI OF INTEST, PART UNSP, W/O PERF OR ABSCESS W/O BLEED SNOMED Code(s): 708378402
[2021-02-17] MEDS: polyethylene glycoL 3350 17 GM POWD.PACK PO SCH (14:55)
--- NOTE | 2021-02-17 22:25 | P.CONS ---
History of Present Illness - Reason for Consult Consult date: 02/17/21 diverticulitis , failed outpatient oral Requesting physician: Clarence Sumner - Chief Complaint abd pain x few days - History of Present Illness History of present illness : Patient is a 55-year female started getting sick around Thanksgiving in this patient's symptoms subsequently started getting worse and the patient was diagnosed with the diverticulitis on ER visit on 02/05/2021 for the patient was treated with oral Cipro and Flagyl x10 days patient mention did have some improvement in her symptoms however after completion of antibiotic therapy still having more pain to the left lower quadrant area describing the pain to be more of a colicky nature and crampy intensity is almost 10 of 10 in severity with no radiation with associated nausea but no vomiting with the symptoms the patient presented back to the hospital on 02/15/2021 patient arrived patient did have a low-grade fever of 99 F patient did have white count of 10.8 with a left shift creatinine was normal liver enzymes are normal urine is negative soares PCR was negative patient did have a CT abdominal pelvis completed wall thickening and fat stranding along a long segment of sigmoid colon that is considered colitis segment measures 13 cm in length patient is currently being treated with cefepime and Flagyl and the patient seem to have shown some improvement infectious disease was consulted today with concern for diverticulitis failing outpatient therapy and possible need for antibiotic on discharge Review of system: CONSTITUTIONAL: Positive for weakness along with the fever. EYES: No complaint. ENT: No complaint. RESPIRATORY: No complaint. CARDIOVASCULAR: No complaint. GENITOURINARY: No complaint. GASTROINTESTINAL: As per history of present illness. MUSCULOSKELETAL: No complaint. INTEGUMENTARY: No complaint. PSYCHOLOGIC: No complaint. ENDOCRINE: No complaint. NEUROLOGIC: No complaint. Past medical history : Reviewed, documented below Past surgical history : Reviewed, documented below Social history: Reviewed, documented below Medications: Reviewed, as documented below EXAMINATION: Vital sigans= Reviewed and documented below GENERAL DESCRIPTION: Middle-aged female lying in bed, no distress. No tachypnea or accessory muscle of respiration use. HEENT: Shows Pallor , no scleral icterus. Oral mucous membrane is dry. NECK: Trachea central, no thyromegaly. LUNGS: Unlabored breathing. Clear to auscultation anteriorly. No wheeze or crackle. HEART: S1, S2, regular rate and rhythm. ABDOMEN: Soft, mild left lower quadrant tenderness , no guarding or rigidity EXTREMITIES: No edema of feet. SKIN: No rash, no masses palpable. NEUROLOGICAL: The patient is awake, alert, oriented x3, mood and affect normal. LABS AND RADIOLOGY: Reviewed results see below Assessment : Patient presented to hospital with abdominal pain mostly at the left lower quadrant area with no diarrhea did have nausea and some chills in this patient noticed to have long segment of colon with evidence of diverticulitis about 13 cm failing outpatient oral antibiotic therapy could be related to the possible shorter duration for this extensive diverticulitis Plan: 1-continue the patient cefepime 2 g every 8 hours and Flagyl to be the patient is clinically responded 2-we will have case work aide check her outpatient IV antibiotic coverage may consider 2 weeks of current antibiotics in the outpatient setting and repeat CAT scan afterwards We will follow on clinical condition and cultures to further adjust medication if needed Thank you for this consultation we will follow the patient along with you Past Medical History Past Medical History: Asthma, Osteoarthritis (OA), Thyroid Disorder Additional Past Medical History / Comment(s): Recently diagnosed with diverticulitis and was treated with antibiotics, past colonoscopy with diverticulum, hypothyroid, UTIs, overactive bladder, osteopenia, arthritis bilateral ankles/feet History of Any Multi-Drug Resistant Organisms: None Reported Past Surgical History: No Surgical Hx Reported Additional Past Surgical History / Comment(s): 2017 colonoscopy Past Anesthesia/Blood Transfusion Reactions: No Reported Reaction Smoking Status: Never smoker - Past Family History Mother Family Medical History: COPD, Diabetes Mellitus Additional Family Medical History / Comment(s): Mother is , she was a smoker. Father Family Medical History: Cancer Additional Family Medical History / Comment(s): Father of lung cancer. family Family Medical History: No Reported History Medications and Allergies Home Medications Medication Instructions Recorded Confirmed Type Calcium Carbonate [Calcium] 600 mg PO DAILY 02/05/21 02/15/21 History Cholecalciferol (Vitamin D3) 75 mcg PO DAILY 02/05/21 02/15/21 History [Vitamin D3 (3000 Iu)] Glucos Sul 2Kcl/MSM/Chond/C/Mn 1 cap PO DAILY 02/05/21 02/15/21 History [Glucosamine Chondroitin Cap] L.acidoph,Paracasei, B.lactis 1 cap PO DAILY 02/05/21 02/15/21 History [Probiotic] Levothyroxine Sodium [Synthroid] 75 mcg PO DAILY 02/05/21 02/15/21 History Magnesium 250 mg PO DAILY 02/05/21 02/15/21 History Mirabegron [Myrbetriq] 25 mg PO DAILY 02/05/21 02/15/21 History Turmeric Root Extract [Turmeric] 500 mg PO DAILY 02/05/21 02/15/21 History Ascorbic Acid [Vitamin C] 500 mg PO DAILY 02/15/21 02/15/21 History Cinnamon Bark [Cinnamon] 500 mg PO DAILY 02/15/21 02/15/21 History Phytonadione [Vitamin K] 5 mg PO DAILY 02/15/21 02/15/21 History Allergies Allergy/AdvReac Type Severity Reaction Status Date / Time Penicillins Allergy Unknown Verified 02/15/21 19:16 Childhood Physical Exam Vitals: Vital Signs Temp Pulse Resp BP BP Pulse Ox 02/17/21 15:00 98.7 F 66 16 166/82 94 L 02/17/21 08:00 99.1 F 68 18 134/76 97 02/17/21 04:00 98.4 F 66 16 137/84 97 02/16/21 20:00 99.1 F 69 17 157/83 96 Intake and Output 02/17/21 02/17/21 02/17/21 06:59 14:59 22:59 Intake Total 540 Balance 540 Intake: Oral 540 Other: # Voids 4 # Bowel Movements 4 Results CBC & Chem 7: 02/17/21 08:03 02/17/21 08:03 Labs: Abnormal Lab Results - Last 24 Hours (Table) 02/16/21 02/17/21 Range/Units 22:43 08:03 Albumin 3.3 L (3.5-5.0) g/dL Urine Ketones 1+ H (Negative) Microbiology - Last 24 Hours (Table) 02/15/21 21:27 Blood Culture - Preliminary Blood No Growth after 24 hours 02/15/21 21:20 Blood Culture - Preliminary Blood No Growth after 24 hours
[2021-02-18] MEDS: HEPARIN SODIUM,PORCINE/PF 5,000 UNIT/0.5 ML SYRINGE SQ SCH ×4 (00:39→23:14)
[2021-02-18] MEDS: metroNIDAZOLE-NS PMX 500 MG in SALINE 1 100ML.BAG IVPB SCH ×3 (03:24→20:37)
[2021-02-18] MEDS: SODIUM CHLORIDE 0.9% 1,000 ML IV SCH (03:25)
[2021-02-18] MEDS: CEFEPIME 2 GM in SODIUM CHLORIDE 0.9% 100 ML IVPB SCH ×3 (05:48→22:09)
[2021-02-18] MEDS: LEVOTHYROXINE 75 MCG TAB PO SCH (05:48)
[2021-02-18] MEDS: NON FORMULARY DRUG (Mirabegron [Myrbetriq] 25 MG Tablet) PO SCH (07:33)
[2021-02-18] MEDS: polyethylene glycoL 3350 17 GM POWD.PACK PO SCH (07:35)
--- NOTE | 2021-02-18 09:27 | P.PN ---
<Clarence Sumner - Last Filed: 02/18/21 09:20> Subjective Progress Note Date: 02/18/21 Hospital course: Patient is a very pleasant 55-year-old female with a past medical history of hypothyroidism. She presented to the emergency department on 02/15/21 with a chief complaint of left lower quadrant abdominal pain. Patient reports recent diagnosis of diverticulitis on 02/05/21 where she was seen and evaluated in the emergency department resulting in diagnosis of diverticulitis and discharged home on Flagyl and ciprofloxacin. Patient reports completing entire course of antibiotics on 02/15/21 but states she began having recurrent abdominal bloating and pain on the evening of 02/12/21 and progressively worsening. Patient was seen and fully evaluated in the emergency department. She was found to have She underwent a CT abdomen and pelvis without contrast which revealed wall thickening and fat stranding along a long segment of sigmoid colon that is consistent with diverticulitis or colitis with dilated gallbladder suggestive of cholecystitis . Urinalysis negative for infection. Covid PCR negative. Patient admitted under our services with consultation to general surgery. Physical exam: Patient seen and fully evaluated at bedside this morning. She reports improvement of left upper and lower abdominal pain stating it is now more of a "discomfort" and also reports slight improvement in abdominal distention. She continues to deny having any further episodes of nausea or vomiting. She does report frequent loose stools described as a "yellow-green color" and thin loose ribbon or pencil like stools. She is tolerating a full liquid diet. infectious disease evaluated recommending outpatient course of IV antibiotics 2 weeks secondary to failed initial outpatient treatment. Plan is for discharge home on IV antibiotics pending insurance authorization. Vital signs reviewed and stable. General: Nontoxic, no distress and appears stated age. Derm: Skin warm and dry, normal coloration for ethnicity. Head: Atraumatic, normocephalic and symmetric. Eyes: EOMs intact, no lid lag, and anicteric sclera Mouth: no lip lesions, mucus membranes moist Cardiovascular: regular rate and rhythm with normal S1S2, no murmur, positive posterior tibial pulses bilaterally, and cap refill < 2 seconds. Lungs: Respirations even, regular, and unlabored on room air. Lungs CTA bilaterally, no rhonchi, no rales, no wheezing, and no accessory muscle usage. Abdominal: soft, slight tenderness upon palpation to left upper and left lower quadrant, no guarding, no appreciable organomegaly Ext: ROM intact. No gross muscle atrophy, no edema, no contractures Neuro: Speech clear, face symmetrical and CN II-XII grossly intact with no noted focal neuro deficits Psych: Alert and oriented to person, place, time, and situation. Appropriate and pleasant affect. Assessment and Plan of Care: Acute diverticulitis of sigmoid colon, failed outpatient treatment with Flagyl and ciprofloxacin [address] abdomen and pelvis without contrast which revealed wall thickening and fat stranding along a long segment of sigmoid colon that is consistent with diverticulitis or colitis with dilated gallbladder suggestive of cholecystitis Gen. surgery following Continue IV antibiotics with cefepime and Flagyl Continue full liquid diet Received hydration with IV fluids, we'll discontinue now that patient is tolerating a full liquid diet. Blood cultures showing no growth after 24 hours Symptomatic care and pain management. CT findings suggest dilated gallbladder concerning for cholecystitis Gen. surgery consulted, stating no need for gallbladder workup as gallbladder distention is likely on the basis of decreased bowel motility and decreased oral intake. Negative Gaines's sign, negative right upper quadrant tenderness Hypothyroidism Continue daily medication regimen with levothyroxine 75 g each morning. CODE STATUS: Full code DVT prophylaxis: Heparin Discussed with: Patient and RN Anticipated discharge date: clinical course to determine, pending insurance authorization for home IV antibiotics Anticipated discharge place: Home A total of 45 minutes was spent on the care of this complex patient more than 50% of the time was spent in counseling and care coordination. Objective - Vital Signs Vital signs: Vital Signs Temp 97.8 F 02/18/21 01:49 Pulse 65 02/18/21 01:49 Resp 18 02/18/21 01:49 BP 130/84 02/18/21 01:49 Pulse Ox 94 L 02/18/21 01:49 Intake & Output 02/17/21 02/18/21 02/18/21 18:59 06:59 18:59 Intake Total 700 Balance 700 Intake: Oral 700 Other: # Voids 4 2 # Bowel Movements 4 - Labs CBC & Chem 7: 02/17/21 08:03 02/17/21 08:03 Labs: Microbiology - Last 24 Hours (Table) 02/15/21 21:27 Blood Culture - Preliminary Blood No Growth after 48 hours 02/15/21 21:20 Blood Culture - Preliminary Blood No Growth after 48 hours <Nenita,Sivateja - Last Filed: 02/18/21 18:50> Subjective I reviewed the documentation as provided by the FRANCIS above, who is the original author of this note. I agree with the documented assessment and plan, with the following changes: None Objective - Vital Signs Vital signs: Vital Signs Temp 98.6 F 02/18/21 14:03 Pulse 58 L 02/18/21 14:03 Resp 18 02/18/21 14:03 BP 136/97 02/18/21 14:03 Pulse Ox 95 02/18/21 14:03 Intake & Output 02/17/21 02/18/21 02/18/21 18:59 06:59 18:59 Intake Total 700 1660 Balance 700 1660 Intake: Intake, IV Titration 1300 Amount Sodium Chloride 0.9% 1, 1200 000 ml @ 100 mls/hr IV . Q10H GABRIELLE Rx#:[id number] metroNIDAZOLE-NS PMX 500 100 mg In Saline 1 100ml.bag @ 100 mls/hr IVPB Q8H GABRIELLE Rx#:[id number] Oral 700 360 Other: # Voids 4 2 # Bowel Movements 4 - Labs CBC & Chem 7: 02/17/21 08:03 02/17/21 08:03 Labs: Microbiology - Last 24 Hours (Table) 02/15/21 21:27 Blood Culture - Preliminary Blood No Growth after 48 hours 02/15/21 21:20 Blood Culture - Preliminary Blood No Growth after 48 hours
[2021-02-18] MEDS ORDERED: LIDOCAINE 1% INJ 10MG/ML (20 ML MDV) ONE (10:29)
[2021-02-18] MEDS ORDERED: LIDOCAINE 1% INJ 10MG/ML (20 ML MDV) SQ ONE (10:42)
--- NOTE | 2021-02-18 11:00 | IR ---
PICC LINE PLACEMENT: HISTORY: Infection requiring long-term antibiotic therapy PROCEDURE: Ultrasound and fluoroscopic guidance of PICC line placement. COMPLICATIONS: None ANESTHESIA: 1. 1% Lidocaine locally. FINDINGS/TECHNIQUE: The procedure was explained to the patient. The risks, complications, benefits and alternatives were discussed and any questions were answered. Informed consent was obtained. The patient was placed supine on the fluoroscopic table and prepped and draped in the usual sterile fash ion. Utilizing a 21 gauge needle and sonographic and fluoroscopic guidance, access in the left basi lic vein was achieved and there is placement of a 0.018 guidewire. The vein is patent. A 4-F sheath was placed over the guidewire. The guidewire and dilator were removed and a 4-F. PICC line was plac ed through the sheath with the tip at the level of the SVC. The sheath was removed, the catheter was flushed and sutured into position. The patient was stable throughout the procedure and remained sta ble upon discharge from the Department of Radiology. The vein puncture was patent under ultrasound. A garcia scale image was obtained to document patency of the vein punctured. All elements of the maximal barrier technique were utilized. FLUOROSCOPY TIME: 0.1 minutes and one images submitted IMPRESSION: Successful PICC line placement under ultrasound and fluoroscopic guidance.
--- NOTE | 2021-02-18 11:32 | P.PN ---
Subjective Progress Note Date: 02/18/21 Principal diagnosis: Diverticulitis Patient feels better today. She is having better bowel function. Multiple smaller bowel movements noted. No nausea or vomiting. Tolerating full liquids. He feels less bloated. She is afebrile. PICC line was placed this morning. Objective - Vital Signs Vital signs: Vital Signs Temp 98.5 F 02/18/21 07:56 Pulse 77 02/18/21 07:56 Resp 18 02/18/21 07:56 BP 164/84 02/18/21 07:56 Pulse Ox 95 02/18/21 07:56 Intake & Output 02/17/21 02/18/21 02/18/21 18:59 06:59 18:59 Intake Total 700 180 Balance 700 180 Intake: Oral 700 180 Other: # Voids 4 2 # Bowel Movements 4 - Exam Abdomen: Soft, minimal distention, minimal left lower quadrant tenderness - Labs CBC & Chem 7: 02/17/21 08:03 02/17/21 08:03 Labs: Microbiology - Last 24 Hours (Table) 02/15/21 21:27 Blood Culture - Preliminary Blood No Growth after 48 hours 02/15/21 21:20 Blood Culture - Preliminary Blood No Growth after 48 hours Assessment and Plan (1) Diverticulitis Narrative/Plan: Patient doing much better. Agree with plans for home IV antibiotics. Continue full liquids. Gradually started advancing to softer foods tomorrow. She may be discharged from my standpoint. Follow-up 1 week if discharged today. Current Visit: Yes Status: Acute Code(s): K57.92 - DVTRCLI OF INTEST, PART UNSP, W/O PERF OR ABSCESS W/O BLEED SNOMED Code(s): 538452441
--- NOTE | 2021-02-18 12:29 | PN ---
PROGRESS NOTE DATE OF SERVICE: 02/18/2021 REASON FOR FOLLOWUP: Acute diverticulitis failing outpatient oral antibiotic therapy. INTERVAL HISTORY: The patient is afebrile. The patient is breathing comfortably. The patient's abdominal pain has decreased in intensity. Denies any nausea, no vomiting. No chest pain, shortness of breath or cough. PHYSICAL EXAMINATION: Blood pressure 164/84 with a pulse of 77, temperature 98.5, she is 95% on room air. General description is a middle-aged female up in the chair in no distress. Respiratory system: Unlabored breathing, clear to auscultation anteriorly. Heart S1, S2. Regular rate, and rhythm. Abdomen soft, less distended and tender. LABS: Hemoglobin is 12.1, white count 7.2, creatinine 0.66. DIAGNOSTIC IMPRESSION AND PLAN: Patient with acute diverticulitis, long segment did not respond very well to oral antibiotic therapy, more likely because of disease, seems to be doing well with Cefepime and Flagyl to continue for another 12 days to finish a 2 week course of therapy and close outpatient followup. Prescription sent to the pharmacy. ILIAL / KATINAN: [id number] /
[2021-02-19] MEDS: metroNIDAZOLE-NS PMX 500 MG in SALINE 1 100ML.BAG IVPB SCH (04:14)
[2021-02-19] MEDS: LEVOTHYROXINE 75 MCG TAB PO SCH (05:25)
[2021-02-19] MEDS: CEFEPIME 2 GM in SODIUM CHLORIDE 0.9% 100 ML IVPB SCH (05:25)
[2021-02-19 07:16] LABS: HCT 39.5 % (34.0-46.0); HGB 12.8 gm/dL (11.4-16.0); MCH 29.9 pg (25.0-35.0); MCHC 32.3 g/dL (31.0-37.0); MCV 92.7 fL (80.0-100.0); Mean Platelet Volume 7.6; Platelet Count 299 k/uL (150-450); RBC 4.26 m/uL (3.80-5.40); RDW 13.6 % (11.5-15.5); WBC 7.4 k/uL (3.8-10.6)
--- NOTE | 2021-02-19 07:44 | P.DS ---
<Clarence Sumner - Last Filed: 02/19/21 09:24> Providers Expected date of discharge: 02/19/21 Hospital Course: Discharge Diagnosis: Acute diverticulitis of sigmoid colon, failed outpatient treatment with Flagyl and ciprofloxacin 10 days, being discharged home on IV antibiotics cefepime and flagyl. CT findings suggest dilated gallbladder, Gen. surgery stating no need for further gallbladder workup as gallbladder distention is likely on the basis of decreased bowel motility and decreased oral intake. Hypothyroidism Hypokalemia, replaced. Hospital Course: Patient is a very pleasant 55-year-old female with a past medical history of hypothyroidism. She presented to the emergency department on 02/15/21 with a chief complaint of left lower quadrant abdominal pain. Patient reports recent diagnosis of diverticulitis on 02/05/21 where she was seen and evaluated in the emergency department resulting in diagnosis of diverticulitis and discharged home on Flagyl and ciprofloxacin. Patient reports completing entire course of antibiotics on 02/15/21 but states she began having recurrent abdominal bloating and pain on the evening of 02/12/21 and progressively worsening. Patient was seen and fully evaluated in the emergency department. She was found to have She underwent a CT abdomen and pelvis without contrast which revealed wall thickening and fat stranding along a long segment of sigmoid colon that is consistent with diverticulitis or colitis with dilated gallbladder suggestive of cholecystitis . Urinalysis negative for infection. Covid PCR negative. Patient admitted under our services with consultation to general surgery. She was treated with IV antibiotics cefepime and flagyl and showed improvement daily. Pt was under care of general surgery and ID. She is stable for discharge at this time and to follow up with genreral surgery, Dr. Cai in 1 week. Physical exam: Patient seen and fully evaluated at bedside this morning. She reports full resolution of distention and left upper quadrant pain along with significant improvement of left lower abdominal pain. She continues to deny having any further episodes of nausea or vomiting. She states her stool is now more formed with consistency and she has been tolerating a low fat diet. Pt stable for discharge home. Vital signs reviewed and stable. General: Nontoxic, no distress and appears stated age. Derm: Skin warm and dry, normal coloration for ethnicity. Head: Atraumatic, normocephalic and symmetric. Eyes: EOMs intact, no lid lag, and anicteric sclera Mouth: no lip lesions, mucus membranes moist Cardiovascular: regular rate and rhythm with normal S1S2, no murmur, positive posterior tibial pulses bilaterally, and cap refill < 2 seconds. Lungs: Respirations even, regular, and unlabored on room air. Lungs CTA bilaterally, no rhonchi, no rales, no wheezing, and no accessory muscle usage. Abdominal: soft, slight tenderness upon palpation to left upper and left lower quadrant, no guarding, no appreciable organomegaly Ext: ROM intact. No gross muscle atrophy, no edema, no contractures Neuro: Speech clear, face symmetrical and CN II-XII grossly intact with no noted focal neuro deficits Psych: Alert and oriented to person, place, time, and situation. Appropriate and pleasant affect. A total of 45 minutes of time were spent preparing this complex discharge s ka[place]. Assessment: I reviewed the documentation as provided by the FRANCIS above, who is the original author of this note. I agree with the documented assessment and plan, with the following changes: None Patient Condition at Discharge: Stable Plan - Discharge Summary Discharge Rx Participant: No New Discharge Prescriptions: New Cefepime [Maxipime] 2 gm IVPB Q8H #36 each metroNIDAZOLE [Flagyl] 500 mg PO TID #42 tab Continue Turmeric Root Extract [Turmeric] 500 mg PO DAILY Glucos Sul 2Kcl/MSM/Chond/C/Mn [Glucosamine Chondroitin Cap] 1 cap PO DAILY Mirabegron [Myrbetriq] 25 mg PO DAILY Levothyroxine Sodium [Synthroid] 75 mcg PO DAILY L.acidoph,Paracasei, B.lactis [Probiotic] 1 cap PO DAILY Phytonadione [Vitamin K] 5 mg PO DAILY Ascorbic Acid [Vitamin C] 500 mg PO DAILY Magnesium 250 mg PO DAILY Cholecalciferol (Vitamin D3) [Vitamin D3 (3000 Iu)] 75 mcg PO DAILY Calcium Carbonate [Calcium] 600 mg PO DAILY Cinnamon Bark [Cinnamon] 500 mg PO DAILY Discharge Medication List Calcium Carbonate [Calcium] 600 mg PO DAILY 02/05/21 [History] Cholecalciferol (Vitamin D3) [Vitamin D3 (3000 Iu)] 75 mcg PO DAILY 02/05/21 [History] Glucos Sul 2Kcl/MSM/Chond/C/Mn [Glucosamine Chondroitin Cap] 1 cap PO DAILY 02/05/21 [History] L.acidoph,Paracasei, B.lactis [Probiotic] 1 cap PO DAILY 02/05/21 [History] Levothyroxine Sodium [Synthroid] 75 mcg PO DAILY 02/05/21 [History] Magnesium 250 mg PO DAILY 02/05/21 [History] Mirabegron [Myrbetriq] 25 mg PO DAILY 02/05/21 [History] Turmeric Root Extract [Turmeric] 500 mg PO DAILY 02/05/21 [History] Ascorbic Acid [Vitamin C] 500 mg PO DAILY 02/15/21 [History] Cinnamon Bark [Cinnamon] 500 mg PO DAILY 02/15/21 [History] Phytonadione [Vitamin K] 5 mg PO DAILY 02/15/21 [History] Cefepime [Maxipime] 2 gm IVPB Q8H #36 each 02/18/21 [Rx] metroNIDAZOLE [Flagyl] 500 mg PO TID #42 tab 02/18/21 [Rx] Follow up Appointment(s)/Referral(s): Abiodun Cai MD [Medical Doctor] - 02/26/21 8:30 am José Flores MD [Primary Care Provider] - 02/23/21 3:00 pm [facility],Infusion [NON-STAFF] - 1 Week Rj Askew MD [STAFF PHYSICIAN] - 03/02/21 1:15 pm [facility] Visiting Nurse, [NON-STAFF] - 1 Week Patient Instructions/Handouts: Metronidazole (By mouth), Cefepime (By injection), Diverticulitis (DC), Heart Healthy Diet (DC), How to Flush Your PICC or Midline Catheter (DC), Peripherally Inserted Central Catheters and Midline Catheters (DC) Activity/Diet/Wound Care/Special Instructions: Activity: As tolerated. Take breaks as needed. Diet: Heart healthy and carb consistent diet. Avoid salts, or foods with hidden salts such as canned or boxed foods and frozen dinners. Extra salt makes your heart work harder and traps the fluid in your body for longer. Special Instructions: Take all of your medications as directed and remember to keep all of your doctor's appointments and follow-up as needed. You are being discharged home on IV antibiotics as we discussed, this has been set up through infusion center/visiting nurses with [facility]. Thank you for allowing us to participate in your care, it was truly a pleasure having you for our patient!!! Wishing you a very Blessed, Happy, and Healthy New Year!!! Discharge Disposition: HOME WITH HOME HEALTH SERVICES <Evan Gutierres - Last Filed: 02/19/21 16:32> Providers Date of admission: 02/15/21 19:55 Attending physician: Louis Bran MD Consults: 02/15/21 19:48 Consult Physician Urgent Consulting Provider: Abiodun Cai Consult Reason/Comments: Diverticulitis Do you want consulting provider notified?: Yes 02/17/21 13:02 Consult Physician Routine Consulting Provider: Rj Askew Consult Reason/Comments: diverticulitis failed outpatient tx with abx Do you want consulting provider notified?: Yes Primary care physician: José Flores MD
[2021-02-19 07:45] LABS: ALT 16 U/L (4-34); AST 27 U/L (14-36); African American GFR (CKD) >90 (>60 ml/min/1.73 sqM); Albumin 3.3 g/dL (3.5-5.0); Alkaline Phosphatase 77 U/L (38-126); Anion Gap 8 mmol/L; Blood Urea Nitrogen 6 mg/dL (7-17); Calcium 8.8 mg/dL (8.4-10.2); Carbon Dioxide 24 mmol/L (22-30); Chloride 106 mmol/L (98-107); Glucose 89 mg/dL (74-99); Magnesium 1.9 mg/dL (1.6-2.3); Non-African American GFR(CKD) >90 (>60 ml/min/1.73 sqM); Potassium 3.4 mmol/L (3.5-5.1); Sodium 138 mmol/L (137-145); Total Bilirubin 0.7 mg/dL (0.2-1.3); Total Protein 6.4 g/dL (6.3-8.2)
[2021-02-19 08:16] VITALS: BP 138/88; PULSE 71; RESP 16; TEMP 99.6
[2021-02-19] MEDS ORDERED: POTASSIUM CHLORIDE ER 20 MEQ TAB.ER PO STA (09:02)
[2021-02-19] MEDS: NON FORMULARY DRUG (Mirabegron [Myrbetriq] 25 MG Tablet) PO SCH (09:13)
[2021-02-19] MEDS: polyethylene glycoL 3350 17 GM POWD.PACK PO SCH (09:15)
[2021-02-19] MEDS: HEPARIN SODIUM,PORCINE/PF 5,000 UNIT/0.5 ML SYRINGE SQ SCH (09:16)
== END 2021-02-19 10:49 | disposition home health service (06) | DRG 392 ==
LOC: EC 17:50 → 4SSUR 19:55 → 3NCARDOBS 02-16 08:50
PROVIDERS: ADMIT Internal Medicine; ATTEND Internal Medicine
PROC: 02HV33Z Insertion of Infusion Device into Superior Vena Cava, Percutaneous Approach (ICD-10-PCS; principal; 2021-02-18 09:00)
DX: R10.84 Generalized abdominal pain (principal); K57.32 Diverticulitis of large intestine without perforation or abscess without bleeding; E03.9 Hypothyroidism, unspecified; Z20.822 Contact with and (suspected) exposure to COVID-19; J45.909 Unspecified asthma, uncomplicated; E87.6 Hypokalemia; N32.81 Overactive bladder; M85.80 Other specified disorders of bone density and structure, unspecified site; M19.90 Unspecified osteoarthritis, unspecified site; Z79.890 Hormone replacement therapy; Z79.899 Other long term (current) drug therapy; Z88.0 Allergy status to penicillin; Z80.1 Family history of malignant neoplasm of trachea, bronchus and lung; Z82.5 Family history of asthma and other chronic lower respiratory diseases; Z83.3 Family history of diabetes mellitus; Z87.440 Personal history of urinary (tract) infections
CPT/HCPCS: 36415; 36573; 74177; 80053; 81003; 82150; 83605; 83690; 83735; 85025; 85027; 87040; 87635; 96360; 99285

== ENCOUNTER → 2021-03-06 | Outpatient (CLI) | payer OTHER ==
[2021-03-06 11:55] LABS: African American GFR (CKD) >90 (>60 ml/min/1.73 sqM); Blood Urea Nitrogen 10 mg/dL (7-17); Non-African American GFR(CKD) >90 (>60 ml/min/1.73 sqM)
--- NOTE | 2021-03-06 20:34 | CT ---
EXAMINATION TYPE: CT abdomen pelvis w con CT DLP: 1586 mGycm, Automated exposure control for dose reduction was used. DATE OF EXAM: 03/06/2021 1:40 PM COMPARISON: CT abdomen pelvis on 02/15/2021. CLINICAL INDICATION:Female, 56 years old with history of K57.32 Diverticulitis of large intestine, Di verticulitis of Large Intestine TECHNIQUE: Standard CT of the abdomen and pelvis following the administration of 100 cc of Isovue 3 00 IV contrast material and oral contrast. Coronal and sagittal reformats were performed. FINDINGS: LOWER CHEST: Unremarkable ABDOMEN LIVER: Unremarkable GALLBLADDER AND BILE DUCTS: Gallbladder measures up to 12.0 x 6.2 cm PANCREAS: Unremarkable. SPLEEN: Unremarkable. ADRENAL GLANDS: Unremarkable. KIDNEYS AND URETERS: No evidence of hydronephrosis or renal calculus. The ureters are unremarkable. PELVIS BLADDER: Unremarkable REPRODUCTIVE: Unremarkable. ABDOMEN & PELVIS STOMACH AND BOWEL: There are has been mild improvement of fat stranding changes around the sigmoid c olon in areas of multiple colonic diverticula. There is vascular engorgement also present next to thi s bowel loop degenerative increased from prior. No evidence of organizing fluid collection or free ai r. Evidence of bowel obstruction. PERITONEUM: No evidence of pneumoperitoneum or free fluid. VASCULATURE: No evidence of aortic aneurysm. MUSCULOSKELETAL: No acute osseous abnormalities LYMPH NODES: No gross evidence for lymphadenopathy. Decreased prominent lymph nodes which are not enl arged in the mesentery near the sigmoid colon. SOFT TISSUE/ABDOMINAL WALL: There are anterior abdominal wall medicine injection changes. IMPRESSION: 1. Interval mild improvement of inflammatory changes around the sigmoid colon with persistent mild co litis/diverticulitis. No evidence of organizing fluid collection or free air. A colonoscopy after res olution is recommended to rule out underlying lesion. 2. Persistent dilated borderline hydropic gallbladder. Consider nuclear medicine HIDA scan with ejec tion fraction if there is concern for biliary dyskinesia.
== END | disposition home or self-care (01) ==
LOC: RADCTMAIN 10:46
PROVIDERS: ATTEND Surgery
DX: K57.32 Diverticulitis of large intestine without perforation or abscess without bleeding (principal); K82.1 Hydrops of gallbladder
CPT/HCPCS: 82565; 84520; 74177; 36415; Q9967 ×2

== ENCOUNTER → 2021-03-18 | Outpatient (CLI) | payer OTHER ==
--- NOTE | 2021-03-20 08:08 | MM ---
Reason for exam: screening (asymptomatic). Last mammogram was performed 1 year and 1 month ago. History: Patient is postmenopausal. Family history of breast cancer in sister at age 36. Physical Findings: A clinical breast exam by your physician is recommended on an annual basis and results should be correlated with mammographic findings. MG 3D Screening Mammo W/Cad Bilateral CC and MLO view(s) were taken. Prior study comparison: February 14, 2020, bilateral MG 3d screening mammo w/cad. December 06, 2018, mammogram. There are scattered fibroglandular densities. There is chronic nodularity in the right breast posterior central MLO. No significant changes when compared with prior studies. ASSESSMENT: Benign, BI-RAD 2 RECOMMENDATION: Routine screening mammogram of both breasts in 1 year.
== END | disposition home or self-care (01) ==
LOC: RADMAMWWP 14:22
PROVIDERS: ATTEND Obstetrics & Gynecology Obstetrics
DX: Z12.31 Encounter for screening mammogram for malignant neoplasm of breast (principal); Z80.3 Family history of malignant neoplasm of breast; Z78.0 Asymptomatic menopausal state
CPT/HCPCS: 77063; 77067

== ENCOUNTER → 2021-03-27 | Outpatient (CLI) | payer OTHER ==
--- NOTE | 2021-03-27 15:56 | US ---
EXAMINATION TYPE: US abdomen complete DATE OF EXAM: 03/27/2021 COMPARISON: NONE CLINICAL HISTORY: R10.11 Ruq PAIN. rt abd pain that extends to back EXAM MEASUREMENTS: Liver Length: 14.3 cm Gallbladder Wall: 0.2 cm CBD: 0.6 cm Spleen: 11.0 cm Right Kidney: 10.8 x 4.3 x 4.5 cm Left Kidney: 9.5 x 4.1 x 5.0 cm Pancreas: wnl Liver: wnl Gallbladder: hydropic with multiple large stones at neck, largest dimension was 2.8cm Evidence for sonographic Gaines's sign: no CBD: wnl Spleen: wnl Right Kidney: wnl Left Kidney: wnl Upper IVC: wnl Abd Aorta: wnl IMPRESSION: 1. Cholelithiasis
== END | disposition home or self-care (01) ==
LOC: RADUSWWP 15:00
PROVIDERS: ATTEND Internal Medicine Infectious Disease
DX: K80.20 Calculus of gallbladder without cholecystitis without obstruction (principal)
CPT/HCPCS: 76700

== ENCOUNTER 2021-03-31 09:35 | Day surgery (SDC) | payer OTHER ==
[2021-03-27 10:27] VITALS: BMI 30.4
[2021-03-31] MEDS ORDERED: LACTATED RINGERS 1,000 ML IV SCH (09:45)
[2021-03-31 09:53] VITALS: RESP 16; TEMP 98.5
[2021-03-31] MEDS ORDERED: LIDOCAINE 1% (10MG/ML) FOR IV START INTRADERMA ONE (09:53)
[2021-03-31] MEDS ORDERED: PROPOFOL 10 MG/ML 20 ML VIAL IV ONE (10:05)
[2021-03-31] MEDS ORDERED: LIDOCAINE 1% INJ 10MG/ML (20 ML MDV) ONE (10:05)
--- NOTE | 2021-03-31 10:13 | P.GSHP ---
History of Present Illness H&P Date: 03/31/21 Chief Complaint: Change in bowel habits 56-year-old female here today for colonoscopy. Patient with recent hospitalization for diverticulitis. Patient with suspected partial colonic obstruction during that hospitalization. Symptoms have improved. She was on outpatient IV antibiotics after she failed initial therapy. Last colonoscopy 5 years ago. Here today for colonoscopy. Has an appointment to see colorectal surgery in the next few weeks. Also recently found to have symptomatic cholelithiasis/chronic cholecystitis. Past Medical History Past Medical History: Asthma, Osteoarthritis (OA), Thyroid Disorder Additional Past Medical History / Comment(s): Recently diagnosed with diverticulitis, UTIs, overactive bladder, osteopenia, arthritis bilateral ankles/feet History of Any Multi-Drug Resistant Organisms: None Reported Past Surgical History: No Surgical Hx Reported Additional Past Surgical History / Comment(s): 2017 colonoscopy Past Anesthesia/Blood Transfusion Reactions: No Reported Reaction Smoking Status: Never smoker - Past Family History Mother Family Medical History: COPD, Diabetes Mellitus Additional Family Medical History / Comment(s): Mother is , she was a smoker. Father Family Medical History: Cancer Additional Family Medical History / Comment(s): Father of lung cancer. Sister(s) Family Medical History: Cancer Brother(s) Family Medical History: Cancer family Family Medical History: No Reported History Medications and Allergies Home Medications Medication Instructions Recorded Confirmed Type Calcium Carbonate [Calcium] 600 mg PO DAILY 02/05/21 03/31/21 History Cholecalciferol (Vitamin D3) 75 mcg PO DAILY 02/05/21 03/31/21 History [Vitamin D3 (3000 Iu)] Glucos Sul 2Kcl/MSM/Chond/C/Mn 1 cap PO DAILY 02/05/21 03/31/21 History [Glucosamine Chondroitin Cap] L.acidoph,Paracasei, B.lactis 1 cap PO DAILY 02/05/21 03/31/21 History [Probiotic] Levothyroxine Sodium [Synthroid] 75 mcg PO DAILY 02/05/21 03/31/21 History Mirabegron [Myrbetriq] 25 mg PO DAILY 02/05/21 03/31/21 History Turmeric Root Extract [Turmeric] 500 mg PO DAILY 02/05/21 03/31/21 History Ascorbic Acid [Vitamin C] 500 mg PO DAILY 02/15/21 03/31/21 History Cinnamon Bark [Cinnamon] 500 mg PO DAILY 02/15/21 03/31/21 History Phytonadione [Vitamin K] 5 mg PO DAILY 02/15/21 03/31/21 History Magnesium 400 mg PO DAILY 03/27/21 03/31/21 History polyethylene glycoL 3350 [Miralax] 17 gm PO DAILY 03/27/21 03/31/21 History Allergies Allergy/AdvReac Type Severity Reaction Status Date / Time Penicillins Allergy Unknown Verified 03/31/21 09:50 Childhood Surgical - Exam Vital Signs Temp Pulse Resp BP Pulse Ox 98.5 F 61 16 168/84 61 L 03/31/21 09:51 03/31/21 09:51 03/31/21 09:51 03/31/21 09:51 03/31/21 09:51 Physical exam: General: Well-developed, well-nourished HEENT: Normocephalic, sclerae nonicteric Abdomen: Nontender, nondistended Extremities: No edema Neuro: Alert and oriented Assessment and Plan (1) Change in bowel habits Narrative/Plan: Will proceed with colonoscopy at this time. Current Visit: Yes Status: Acute Code(s): R19.4 - CHANGE IN BOWEL HABIT SNOMED Code(s): 937104859
--- NOTE | 2021-03-31 10:35 | P.PCN ---
Date of Procedure: 03/31/21 Procedure(s) Performed: PREOPERATIVE DIAGNOSIS: Diverticulitis POSTOPERATIVE DIAGNOSIS: Tortuous sigmoid unable to advance beyond the mid sigmoid colon PROCEDURE: Colonoscopy attempted ANESTHESIA: MAC SURGEON: Abiodun Cai M.D. SPECIMENS: None ENDOSCOPIC PROCEDURE: The patient was placed on the endoscopy table in the left decubitus position. The Olympus colonoscope was inserted into the anus and passed under direct visualization to the mid sigmoid colon. Despite numerous attempts and body position changes we're unable to advance beyond the mid sigmoid colon. There was mild edema of the wall of the sigmoid colon. I could not even visualize any definitive diverticular orifices. No erythema of the surfaces were noted. The scope was withdrawn. No abnormalities in the rectum were seen. Digital rectal examination was normal. The patient was taken to the recovery room in stable condition per anesthesia guidelines. RECOMMENDATIONS: Will discuss endoscopic findings with the patient.
[2021-03-31 10:55] VITALS: BP 160/86; PULSE 60
== END 2021-03-31 11:28 | disposition home or self-care (01) ==
LOC: ORWHC2ENDO 09:35
PROVIDERS: ATTEND Surgery
DX: K57.32 Diverticulitis of large intestine without perforation or abscess without bleeding (principal); K57.92 Diverticulitis of intestine, part unspecified, without perforation or abscess without bleeding; M85.80 Other specified disorders of bone density and structure, unspecified site; E07.9 Disorder of thyroid, unspecified; M19.90 Unspecified osteoarthritis, unspecified site; J45.909 Unspecified asthma, uncomplicated; Z79.899 Other long term (current) drug therapy
CPT/HCPCS: 45330; J2001; J2704; 45378

== ENCOUNTER → 2022-06-02 | Outpatient (CLI) | payer OTHER ==
--- NOTE | 2022-06-02 16:13 | MM ---
Reason for Exam: Screening (asymptomatic). Last mammogram was performed 1 year(s) and 2 month(s) ago. Patient History: Menarche at age 10. First Full-Term at age 23. Postmenopausal. Sister had breast cancer, age 36. Sister had breast cancer, age 72. Risk Values: Catrina 5 year model risk: 5.9%. NCI Lifetime model risk: 30.0%. Prior Study Comparison: 12/06/2018 Screening Mammogram, Unknown. 02/14/2020 Bilateral Screening Mammogram, [facility]. 03/18/2021 Bilateral Screening Mammogram, [facility]. Tissue Density: There are scattered fibroglandular densities. Findings: Analyzed By CAD. There is no suspicious group of microcalcifications or new suspicious mass in either breast. Chronic nodularity within the right breast. Overall Assessment: Benign, BI-RAD 2 Management: Screening Mammogram of both breasts in 1 year. A clinical breast exam by your physician is recommended on an annual basis and results should be correlated with mammographic findings. Electronically signed and approved by: Kwadwo Franklin D.O.
== END | disposition home or self-care (01) ==
LOC: RADMAMWWP 09:33
PROVIDERS: ATTEND Obstetrics & Gynecology Obstetrics
DX: Z12.31 Encounter for screening mammogram for malignant neoplasm of breast (principal); Z78.0 Asymptomatic menopausal state; Z80.3 Family history of malignant neoplasm of breast
CPT/HCPCS: 77063; 77067

== ENCOUNTER → 2022-08-19 | Outpatient (CLI) | payer OTHER | END | disposition home or self-care (01) | LOC: RADBDWWP 08:40 | PROVIDERS: ATTEND Internal Medicine | DX: Z53.9 Procedure and treatment not carried out, unspecified reason (principal) ==

== ENCOUNTER → 2022-09-17 | Outpatient (CLI) | payer OTHER ==
--- NOTE | 2022-09-17 13:21 | CA ---
Exercise Nuclear Stress Test Report Name: [facility] Exam Date: 09/17/2022 09:59 Exam Location: [facility] Ht (in): 66 Wt (lb): 200 BSA: 2.00 Ordering Phys: Willam Pat MD Referring Phys: Willam Pat MD Technologist: THOMAS,, Age: 57 Gender: F : 1965 Procedure CPT: Indications: I25.10 CAD ICD-10 Codes: Patient History: Hypertension and family history of heart disease Medications: Meds past 24 hrs: Pretest Chest Pain: STRESS TEST Chris Protocol Exercise Duration (min:sec): 08:[address] Depressions (mm): 0 Angina Score: 0 Brar Score: 8.58 Resting HR (bpm): 74 Peak HR (bpm): 148 Resting BP (mmHg): 134 / 79 Peak BP (mmHg): / 88 MPHR: 162 Target HR: 138 % MPHR: 91 METS: 10.3 Total Dose: Peak Dose: Atropine: Double Product: BP Response: Stress Termination: Reached target heart rate Stress Symptoms: No chest pain or symptoms Stress Summary: The patient's target heart rate was achieved, The hemodynamic response to exercise was normal ECG ANALYSIS Resting ECG: Sinus rhythm. Normal conduction. No arrhythmias. Normal repolarization. Stress ECG: No ECG evidence of ischemia with exercise. Ventricular premature contraction. CONCLUSIONS Normal ST segment response to stress. Nuclear test results to follow. Patient falls into low-risk group (DTS >= +5). This associates the patient with an annual CV mortality <= 0.5%. Dr. José Lazo MD (Electronically Signed) Final Date: 17 September 2022 13:20
--- NOTE | 2022-09-21 09:49 | NM ---
EXAMINATION TYPE: NM stress cardiolite complete DATE OF EXAM: 09/21/2022 COMPARISON: 09/07/2022 HISTORY: Coronary artery disease TECHNIQUE: After the intravenous administration of 9.6 mCi Tc 99m Sestamibi - Cardiolite resting SPE CT images acquired 60 minutes post injection. At peak stress 25.7 mCi Tc 99m Sestamibi - Stress images obtained 10 minutes post injection The patient was stressed with 0.4mg Lexiscan. FINDINGS: No fixed defects are evident No reversible stress defects on Spect images Wall motion is normal Ejection fraction is calculated to be 67 %. IMPRESSION: 1. No stress-induced ischemic changes.
== END | disposition home or self-care (01) ==
LOC: RADNMMAIN 08:27
PROVIDERS: ATTEND Internal Medicine
DX: I25.10 Atherosclerotic heart disease of native coronary artery without angina pectoris (principal); I10 Essential (primary) hypertension; Z82.49 Family history of ischemic heart disease and other diseases of the circulatory system
CPT/HCPCS: 93017; 78452; A9500

== ENCOUNTER → 2023-06-10 | Outpatient (CLI) | payer OTHER ==
--- NOTE | 2023-06-13 11:24 | MM ---
Reason for Exam: Screening (asymptomatic). Last screening mammogram was performed 12 month(s) ago. Patient History: Menarche at age 10. First Full-Term at age 23. Postmenopausal. Sister had breast cancer, age 36. Sister had breast cancer, age 72. Risk Values: Catrina 5 year model risk: 6.2%. NCI Lifetime model risk: 29.4%. Prior Study Comparison: 02/14/2020 Bilateral Screening Mammogram, [facility]. 03/18/2021 Bilateral Screening Mammogram, [facility]. 06/02/2022 Bilateral MG 3D screening mammo w/cad, [facility]. Tissue Density: The breasts are almost entirely fatty. Findings: Analyzed By CAD. Right breast: There is no suspicious group of microcalcifications or new suspicious mass. Left breast: There is no suspicious group of microcalcifications or new suspicious mass. Overall Assessment: Negative, BI-RAD 1 Management: Screening Mammogram of both breasts in [address] [facility] will attempt to contact patient to return for supplemental views and ultrasound if indicated. Patient should continue monthly self-breast exams. A clinical breast exam by your physician is recommended on an annual basis. This exam should not preclude additional follow-up of suspicious palpable abnormalities. Note on Catrina scores and lifetime risk: 1. A Catrina score greater than 3% is considered moderate risk. If this is the case, consider specialist referral to assess eligibility for a risk reducing agent. 2. If overall lifetime risk for the development of breast cancer is 20% or higher, the patient may qualify for future screening with alternating mammogram and breast MRI. Electronically signed and approved by: Tay Corado DO
== END | disposition home or self-care (01) ==
LOC: RADMAMWWP 08:57
PROVIDERS: ATTEND Obstetrics & Gynecology Obstetrics
DX: Z12.31 Encounter for screening mammogram for malignant neoplasm of breast (principal); Z78.0 Asymptomatic menopausal state; Z80.3 Family history of malignant neoplasm of breast
CPT/HCPCS: 77063; 77067

== ENCOUNTER → 2024-02-28 | Outpatient (CLI) | payer OTHER ==
--- NOTE | 2024-02-28 11:01 | BD ---
EXAMINATION TYPE: Axial Bone Density DATE OF EXAM: 02/28/2024 CLINICAL HISTORY: 59 years old Female. ICD-10 CODE: M85.80 OTH DISRD OF BONE DENSITY AND STRUCTURE, UN , Additional History: Height: 65.5 Weight: 206.4 FRAX RISK QUESTIONS: Alcohol (3 or more units per day): no Family History (Parent hip fracture): no Glucocorticoids (More than 3mos): no (Ex: prednisone, prednisolone, methylprednisolone, dexamethasone, and hydrocortisone). History of Fracture in Adulthood: no Secondary Osteoporosis: 1. Type 1 Diabetes: no 2. Hyperthyroidism: no 3. Menopause before 45: no 4. Malnutrition: no 5. Chronic liver disease: no Rheumatoid Arthritis: no Current Tobacco Use: no RISK FACTORS HISTORY OF: Hip Fracture (Right/Left): no Spine Fracture: no History of Wrist Fracture: no Surgery to Spine/Hip(right/left)/Wrist (right/left): no MEDICATIONS: Thyroid Medications:Synthroid How Long: past 3 years Osteoporosis Medications: no EXAM MEASUREMENTS: Bone mineral densitometry was performed using the [employer] System. Bone mineral density as measured about the Lumbar spine is: ----- L1-L4(G/cm2):0.902 T Score Values are as follows: ----- L1: -2.3 ----- L2: -2.4 ----- L3: -2.1 ----- L4: -2.6 ----- L1-L4: -2.3 Z Score Values are as follows: ----- L1: -2.1 ----- L2: -2.2 ----- L3: -1.9 ----- L4: -2.4 ----- L1-L4: -2.1 Baseline Study Bone mineral density about the R hip (g/cm2): 0.810 Bone mineral density about the L hip (g/cm2): 0.835 T Score values are as follows: -----R Neck: -1.9 -----L Neck: -1.4 -----R Total: -1.6 -----L Total: -1.4 Z Score values are as follows: -----R Neck: -1.2 -----L Neck: -0.8 -----R Total: -1.3 -----L Total: -1.1 Baseline Study FRAX%s: The graph provided illustrates a 8.6% chance for a major osteoporotic fx and a 0.9% chance fo r the hips probability for fx in 10 years time. IMPRESSION: Osteopenia (T Score between -2.5 and -1). There is slightly increased risk of fracture and the patient may be considered for treatment. Re-Screen 2-5 years. NOTE: T-SCORE=SD OF THE YOUNG ADULT MEAN. [facility], , 02/28/2024 10:58 AM
== END | disposition home or self-care (01) ==
LOC: RADBDWWP 10:22
PROVIDERS: ATTEND Internal Medicine
DX: M85.80 Other specified disorders of bone density and structure, unspecified site (principal)
CPT/HCPCS: 77080